=== PATIENT | female | born 1990 | race Caucasian/White ===

== ENCOUNTER 2020-02-13 09:51 | Outpatient (REF) | payer OTHER, SELFPAY | END 2020-02-13 09:52 | disposition home or self-care (01) | LOC: HO.LAB 09:51 | PROVIDERS: Visit Provider Internal Medicine | DX: Z20.828 Contact with and (suspected) exposure to other viral communicable diseases (principal) | CPT/HCPCS: 87635 ==

== ENCOUNTER 2020-03-19 09:52 | Outpatient (REF) | payer OTHER, SELFPAY | END 2020-03-19 09:53 | disposition home or self-care (01) | LOC: HO.LAB 09:52 | PROVIDERS: PCP Internal Medicine; Visit Provider Internal Medicine | DX: Z20.828 Contact with and (suspected) exposure to other viral communicable diseases (principal) | CPT/HCPCS: C9803; U0003 ==

== ENCOUNTER 2020-04-29 09:57 | Outpatient (REF) | payer OTHER, SELFPAY ==
[2020-04-29 11:02] LABS: MANUAL DIFF FLAG NO
[2020-04-29 11:12] LABS: Basophils Absolute Auto 0.1 X10*3/uL (0.0-0.2); Eosinophils Absolute Auto 0.5 X10*3/uL (0.0-0.4); Eosinophils Percent Auto 6.6 % (0-4); Hematocrit 40.2 % (37-47); Hemoglobin 13.1 g/dl (12.0-16.0); Imm Gran Abs Auto 0.02 X10*3/uL (0.00-0.03); Imm Gran Pct Auto 0.3 % (0.0-0.4); Lymphocytes Absolute Auto 2.1 X10*3/uL (1.2-4.9); Lymphocytes Percent Auto 28.4 % (20-40); Mean Corpuscular HGB Conc 32.6 g/dl (31.0-35.0); Mean Corpuscular Hemoglobin 28.7 pg (27.0-33.0); Mean Platelet Volume 11.9 fL (9.4-12.3); Monocytes Absolute Auto 0.3 X10*3/uL (0.1-1.2); Monocytes Percent Auto 3.6 % (2-11); Neutrophils Absolute Auto 4.4 X10*3/uL (2.0-8.3); Neutrophils Percent Auto 60.1 % (45-73); Platelet Count 281 X10*3/uL (160-400); Red Blood Count 4.57 X10*6/uL (4.20-5.50); Red Cell Distribution Width 12.2 % (11.0-16.0); White Blood Count 7.3 X10*3/uL (4.8-10.8)
[2020-04-29 11:47] LABS: Alanine Aminotransferase 17 U/L (0-31); Albumin Level 4.4 g/dL (3.5-5.0); Alkaline Phosphatase 50 U/L (39-117); Anion Gap 13 (12-20); Aspartate Amino Transferase 18 U/L (5-31); Blood Urea Nitrogen 11 mg/dL (9-16); Calcium 8.9 mg/dL (8.4-10.2); Carbon Dioxide 25 mmol/L (22-29); Chloride 105 mmol/L (96-108); Estimated Glomerular Filt Rate > 60; Glucose Random 89 mg/dL (60-115); Potassium 4.1 mmol/l (3.3-5.1); Sodium 139 mmol/L (135-145); Total Protein 7.5 g/dL (6.5-8.0)
[2020-04-29 11:56] LABS: Bilirubin Total 0.6 mg/dL (0.0-1.0)
[2020-04-30 16:52] LABS: Lutenizing Hormone 6.2 mIU/mL
== END 2020-04-29 09:58 | disposition home or self-care (01) ==
LOC: HO.LAB 09:57
PROVIDERS: PCP Internal Medicine; Visit Provider Internal Medicine
DX: E28.2 Polycystic ovarian syndrome (principal); L70.2 Acne varioliformis; N95.1 Menopausal and female climacteric states
CPT/HCPCS: 36415; 80053; 83001; 83002; 84443; 85025

== ENCOUNTER 2020-11-11 10:34 | Outpatient (REF) | payer OTHER, SELFPAY | END 2020-11-11 10:35 | disposition home or self-care (01) | LOC: HO.LAB 10:34 | PROVIDERS: PCP Internal Medicine; Visit Provider Internal Medicine | DX: Z20.822 Contact with and (suspected) exposure to COVID-19 (principal) | CPT/HCPCS: C9803; U0003; U0005 ==

== ENCOUNTER 2021-01-08 10:17 | Outpatient (REF) | payer OTHER, SELFPAY ==
[2021-01-08 12:08] LABS: Alanine Aminotransferase 14 U/L (0-31); Albumin Level 4.2 g/dL (3.5-5.0); Alkaline Phosphatase 40 U/L (39-117); Anion Gap 12 (12-20); Aspartate Amino Transferase 16 U/L (5-31); Bilirubin Total 0.6 mg/dL (0.0-1.0); Blood Urea Nitrogen 9 mg/dL (9-16); Carbon Dioxide 21 mmol/L (22-29); Chloride 109 mmol/L (96-108); Cholesterol 146 mg/dL; Estimated Glomerular Filt Rate > 60; Glucose Random 82 mg/dL (60-115); HDL Cholesterol 44 mg/dL; LDL Cholesterol Calculated 76 mg/dl; Potassium 4.2 mmol/L (3.3-5.1); Sodium 138 mmol/L (135-145); Triglycerides 130 mg/dL
[2021-01-13 12:16] LABS: Testosterone, Free 6.4 pg/mL (0.1-6.4); Testosterone, Total 65 ng/dL (2-45)
[2021-01-13 20:41] LABS: DHEA Sulfate 95 mcg/dL (23-266)
== END 2021-01-08 10:18 | disposition home or self-care (01) ==
LOC: HO.LAB 10:17
PROVIDERS: PCP Internal Medicine; Visit Provider Internal Medicine
DX: E28.2 Polycystic ovarian syndrome (principal); L02.439 Carbuncle of limb, unspecified; L68.0 Hirsutism
CPT/HCPCS: 36415; 80053; 80061; 82627; 84402; 84403

== ENCOUNTER 2021-02-05 13:32 | Outpatient (REF) | payer OTHER, SELFPAY ==
[2021-02-06 02:12] LABS: CT PCR NOT DETECTED (Not Detect.); NG PCR NOT DETECTED (Not Detect.)
[2021-02-08 13:41] LABS: HPV mRNA E6/E7 rflx Not Detected (Not Detected)
== END 2021-02-05 13:33 | disposition home or self-care (01) ==
LOC: HO.LAB 13:32
PROVIDERS: PCP Internal Medicine; Visit Provider Obstetrics & Gynecology
DX: Z01.419 Encounter for gynecological examination (general) (routine) without abnormal findings (principal); E28.2 Polycystic ovarian syndrome; L68.0 Hirsutism
CPT/HCPCS: 87491; 87591; 87624; 88142; 99202

== ENCOUNTER 2021-02-19 15:24 | Outpatient (REF) | payer OTHER, SELFPAY ==
--- NOTE | ~2021-02-19 | US_ITS ---
EXAMINATION: ULTRASOUND OF THE PELVIS CLINICAL INFORMATION: Polycystic ovarian syndrome.. COMPARISON: 04/11/2018. TECHNIQUE: Transabdominal and transvaginal pelvic ultrasound. A transvaginal study was performed in addition to the transabdominal study which did not yield an adequate examination of the uterus and ovaries due to superimposed distended gas-filled loops of bowel. FINDINGS: The uterus is normal in size and appearance, measuring 8.2 x 5 x 3.9 cm longitudinally, anteroposteriorly and transversely. The endometrial stripe thickness is normal, measuring 0.9 cm in thickness. No focal myometrial mass is seen. Nabothian cysts at the cervix. The ovaries bilaterally are visualized, with the right ovary measuring 3.9 x 3.4 x 3.1 cm and the left ovary measuring 4 x 2.8 x 3.2 cm. Multiple small peripheral follicles are seen bilaterally. Small volume of pelvic free fluid. US/US pelvic and transvaginal IMPRESSION: Multiple small peripheral follicles are seen involving both ovaries, as can be seen in the setting of polycystic ovarian syndrome.
== END 2021-02-19 15:25 | disposition home or self-care (01) ==
LOC: HO.US 15:24
PROVIDERS: PCP Internal Medicine; Visit Provider Obstetrics & Gynecology
DX: E28.2 Polycystic ovarian syndrome (principal)
CPT/HCPCS: 76830; 76856

== ENCOUNTER 2021-02-22 08:30 | Outpatient (REF) | payer OTHER, SELFPAY ==
[2021-02-23 09:02] LABS: Prolactin 13.7 ng/mL
== END 2021-02-22 08:31 | disposition home or self-care (01) ==
LOC: HO.LAB 08:30
PROVIDERS: PCP Internal Medicine; Visit Provider Obstetrics & Gynecology
DX: E28.2 Polycystic ovarian syndrome (principal)
CPT/HCPCS: 36415; 84146; 84443

== ENCOUNTER 2021-03-05 15:03 | Outpatient (REF) | payer OTHER, SELFPAY | END 2021-03-05 15:04 | disposition home or self-care (01) | LOC: HO.LAB 15:03 | PROVIDERS: PCP Internal Medicine; Visit Provider Obstetrics & Gynecology | DX: E28.2 Polycystic ovarian syndrome (principal) | CPT/HCPCS: 58100; 81025; 88305 ==

== ENCOUNTER → 2021-04-01 13:56 | Outpatient (BNVA) | payer OTHER, SELFPAY | PROVIDERS: PCP Internal Medicine; Visit Provider Obstetrics & Gynecology | DX: L68.0 Hirsutism (principal); E28.2 Polycystic ovarian syndrome | CPT/HCPCS: 99212 ==

== ENCOUNTER 2021-09-17 09:23 | Outpatient (REF) | payer OTHER, SELFPAY ==
[2021-09-17 09:48] LABS: MANUAL DIFF FLAG NO
[2021-09-17 11:08] LABS: Basophils Absolute Auto 0.1 X10*3/uL (0.0-0.2); Basophils Percent Auto 0.9 % (0-2); Eosinophils Absolute Auto 0.5 X10*3/uL (0.0-0.4); Eosinophils Percent Auto 6.4 % (0-4); Hematocrit 41.1 % (37.0-47.0); Hemoglobin 13.4 g/dl (12.0-16.0); Imm Gran Abs Auto 0.03 X10*3/uL (0.00-0.03); Imm Gran Pct Auto 0.4 % (0.0-0.4); Lymphocytes Absolute Auto 2.2 X10*3/uL (1.2-4.9); Lymphocytes Percent Auto 27.2 % (20-40); Mean Corpuscular HGB Conc 32.6 g/dl (31.0-35.0); Mean Corpuscular Hemoglobin 28.5 pg (27.0-33.0); Mean Corpuscular Volume 87.4 fL (80.0-98.0); Mean Platelet Volume 11.9 fL (9.4-12.3); Monocytes Absolute Auto 0.4 X10*3/uL (0.1-1.2); Monocytes Percent Auto 4.3 % (2-11); Neutrophils Absolute Auto 4.9 x10*3/uL (2.0-8.3); Neutrophils Percent Auto 60.8 % (45-73); Platelet Count 259 X10*3/uL (160-400); Red Cell Distribution Width 12.3 % (11.0-16.0); White Blood Count 8.1 X10*3/uL (4.8-10.8)
[2021-09-17 11:49] LABS: Alanine Aminotransferase 23 U/L (0-31); Albumin Level 4.3 g/dL (3.5-5.0); Alkaline Phosphatase 49 U/L (39-117); Anion Gap 14 (12-20); Aspartate Amino Transferase 21 U/L (5-31); Bilirubin Total 0.4 mg/dL (0.0-1.0); Blood Urea Nitrogen 13 mg/dL (9-16); Calcium 9.5 mg/dL (8.4-10.2); Carbon Dioxide 24 mmol/L (22-29); Chloride 106 mmol/L (96-108); Estimated Glomerular Filt Rate > 60; Glucose Random 86 mg/dL (60-115); Potassium 4.6 mmol/L (3.3-5.1); Sodium 139 mmol/L (135-145); Total Protein 7.6 g/dL (6.5-8.0)
[2021-09-17 11:55] LABS: Thyroid Stimulating Hormone 2.74 uIU/mL (0.32-4.0)
== END 2021-09-17 09:24 | disposition home or self-care (01) ==
LOC: HO.LAB 09:23
PROVIDERS: PCP Internal Medicine; Visit Provider Internal Medicine
DX: K59.00 Constipation, unspecified (principal); R10.33 Periumbilical pain; R10.9 Unspecified abdominal pain
CPT/HCPCS: 36415; 80053; 84443; 85025

== ENCOUNTER 2022-02-24 14:03 | Outpatient (REF) | payer OTHER, SELFPAY ==
[2022-02-25 15:20] LABS: CT PCR NOT DETECTED (Not Detect.); NG PCR NOT DETECTED (Not Detect.)
== END 2022-02-24 14:04 | disposition home or self-care (01) ==
LOC: HO.LNP 14:03
PROVIDERS: PCP Internal Medicine; Visit Provider Obstetrics & Gynecology
DX: Z32.02 Encounter for pregnancy test, result negative (principal)
CPT/HCPCS: 81025; 87491; 87591; 99212

== ENCOUNTER 2022-11-11 20:44 | Emergency (ER) | payer OTHER, SELFPAY ==
[2022-11-11 20:47] VITALS: BP 154/99; PULSE 97; RESP 16; TEMP 36.9; O2SAT 100; BMI 35.2
[2022-11-11 21:45] LABS: MANUAL DIFF FLAG NO
[2022-11-11 21:53] LABS: Basophils Absolute Auto 0.1 X10*3/uL (0.0-0.2); Basophils Percent Auto 0.9 % (0-2); Eosinophils Absolute Auto 0.6 X10*3/uL (0.0-0.4); Eosinophils Percent Auto 5.4 % (0-4); Hemoglobin 13.4 g/dl (12.0-16.0); Imm Gran Abs Auto 0.02 X10*3/uL (0.00-0.03); Imm Gran Pct Auto 0.2 % (0.0-0.4); Lymphocytes Absolute Auto 2.6 X10*3/uL (1.2-4.9); Lymphocytes Percent Auto 24.7 % (20-40); Mean Corpuscular HGB Conc 33.5 g/dl (31.0-35.0); Mean Corpuscular Hemoglobin 29.2 pg (27.0-33.0); Mean Corpuscular Volume 87.1 fL (80.0-98.0); Mean Platelet Volume 11.5 fL (9.4-12.3); Monocytes Absolute Auto 0.5 X10*3/uL (0.1-1.2); Monocytes Percent Auto 4.9 % (2-11); Neutrophils Absolute Auto 6.6 x10*3/uL (2.0-8.3); Neutrophils Percent Auto 63.9 % (45-73); Platelet Count 303 X10*3/uL (160-400); Red Blood Count 4.59 X10*6/uL (4.20-5.50); Red Cell Distribution Width 12.4 % (11.0-16.0); White Blood Count 10.3 X10*3/uL (4.8-10.8)
--- NOTE | 2022-11-11 21:53 | MHC.EDTECH ---
This tech brought patient to triage area,labs and Type and Screen obtained and sent to lab
[2022-11-11 22:03] LABS: Alanine Aminotransferase 59 U/L (0-31); Albumin Level 4.3 g/dL (3.5-5.0); Alkaline Phosphatase 52 U/L (39-117); Anion Gap 14 (12-20); Aspartate Amino Transferase 33 U/L (5-31); Bilirubin Total 0.4 mg/dL (0.0-1.0); Blood Urea Nitrogen 13 mg/dL (9-16); Calcium 9.6 mg/dL (8.4-10.2); Carbon Dioxide 24 mmol/L (22-29); Chloride 106 mmol/L (96-108); Creatinine Clr Calc Pharmacy 90.1; Estimated Glomerular Filt Rate > 60; Glucose Random 104 mg/dL (60-115); Potassium 3.6 mmol/L (3.3-5.1); Sodium 140 mmol/L (135-145); Total Protein 7.7 g/dL (6.5-8.0)
--- NOTE | 2022-11-11 22:12 | MHC.EDTECH ---
Patient was brought to triage area to draw a second type, attempted to get a urine sample,patient was unable to go at this time. Will re-attempt
[2022-11-11 22:25] LABS: HCG Quantitative < 2 mIU/mL
[2022-11-11 23:47] VITALS: BP 132/79; PULSE 80; RESP 18; TEMP 36.6; O2SAT 100
--- NOTE | 2022-11-11 23:52 | PC.NURSE ---
Assumed care of patient. VSS, patient reports vaginal bleeding started on Wednesday11/07/22, today started bleeding heavier with clots approximately the size of a d3grtew dollar. urine sent to lab.
[2022-11-12 00:12] LABS: Appearance Urine Hazy; Color Urine Yellow; Glucose Urine UA Negative (Negative); Leukocyte Esterase Urine Negative (Negative); Nitrite Urine Negative (Negative); PH 5.5 (5.0-9.0); Specific Gravity - Urine >= 1.030 (1.005-1.025); UMIC TRIGGER UACC YES; Urine Blood Large (3+) (Negative); Urine Ketones Negative (Negative); Urine Protein Trace mg/dL (Neg-Trace)
[2022-11-12 00:15] VITALS: BP 132/79; PULSE 80; RESP 16; TEMP 36.6; O2SAT 100
--- NOTE | 2022-11-12 00:25 | ED.GENADULT ---
HPI - General Adult General Chief complaint: Vaginal Bleeding Stated complaint: miscarriages? unknown length of time Time Seen by Provider: 11/12/22 00:06 Source: patient and old records reviewed Mode of arrival: ambulatory Limitations: no limitations History of Present Illness HPI narrative: 32-year-old female presents for evaluation of vaginal bleeding. Patient reports that her menstrual cycle started 2 days ago. She states that was initially seem normal. However today she has had a heavy flow which is abnormal for her with very large blood clots She is concerned that she is having a miscarriage She does not have a documented Her last menstrual cycle was approximately 3 months ago She has a history of PCOS and has her menstrual cycle home in approximately once every 3 months She reports mild lower abdominal cramping Related Data Home Medications Medication Instructions Recorded Confirmed norethindrone (contraceptive) 0.35 0.35 mg PO DAILY 02/24/22 mg tablet Previous Rx's Medication Instructions Recorded docusate sodium 100 mg capsule 100 mg PO DAILY #30 caps 05/08/22 (Colace) Allergies Allergy/AdvReac Type Severity Reaction Status Date / Time acetaminophen [From PERCOCET] Allergy Intermediate RASH Verified 03/05/21 15:15 morphine [MORPHINE] Allergy Intermediate RASH Verified 03/05/21 15:15 oxycodone [From PERCOCET] Allergy Intermediate RASH Verified 03/05/21 15:15 Review of Systems Gastrointestinal: Gastrointestinal: Reports abdominal pain, Denies diarrhea, Denies nausea and Denies vomiting Genitourinary: Genitourinary: Reports abnormal vaginal bleeding and Reports dysmenorrhea PMFSH Family History Family History Maternal Grandmother Breast CA Paternal Grandmother Breast CA Social History Social History Patient Tobacco Use Status: Never used Tobacco Advance Directives: No Advance Directives Information Provided: Yes Physical Exam ED Vital Signs: Vital Signs - 24 hr 11/11/22 20:47 11/11/22 23:47 11/12/22 00:15 Temperature 98.4 F 97.8 F 97.8 F Pulse Rate 97 80 80 Respiratory Rate 16 18 16 Blood Pressure 154/99 H 132/79 132/79 Pulse Oximetry 100 100 100 Oxygen Delivery Method Room Air Room Air Room Air BMI result Body Mass Index 35.2 Const General: healthy appearing, comfortable, no acute distress, alert and awake Nutritional Appearance: well nourished Orientation/consciousness: patient oriented x3 HENMT Head: Yes normocephalic and Yes atraumatic Eyes Eyelids: Yes eyelids normal Conjunctivae: conjunctivae normal Sclerae: sclerae normal Corneas: corneas normal Pupils: Equal, round and reactive pupils present EOM: EOMs intact bilaterally Neck Neck: Yes full ROM Resp Effort & Inspection: normal respiratory effort, able to speak in complete sentences and not labored GI Inspection: No distended Palpation (GI): Soft to palpation, not firm, Tenderness to palpation present (GI) suprapubicly, no guarding and not rigid Skin General skin exam: no rashes or lesions noted and elasticity normal Neuro General: patient oriented x3 Cranial nerves: Yes Equal, round and reactive pupils present and Yes Bilaterally intact EOM present Cognition (Neuro): normal cognition Extrem Other: Moving all extremities well without any obvious deformities Medical Decision Making Medical Decision Making MDM Narrative: [age] old female with past medical history significant for PCOS presents for evaluation of vaginal bleeding. She is not anemic. Her hCG is less than 2 and a serum level indicating that she is not and therefore not having a miscarriage. I discussed this with the patient, her UA does not show evidence of infection, she is to discharge this time and will follow-up with her OBGYN. She reports that she was on control up until about 9 months ago when she stopped due to waking Differential Diagnosis Dysmenorrhea Miscarriage Menstrual cycle Vaginal bleeding Lab Data [facility] Lab Attestation statement: I reviewed the patient's lab results. No leukocytosis, normal hemoglobin and hematocrit. Electrolytes within normal limits. Serum hCG less than 2 11/11/22 21:38 11/11/22 21:38 Labs: Lab Results 11/11/22 11/11/22 11/11/22 Range/Units 21:38 21:38 21:38 WBC 10.3 (4.8-10.8) X10*3/uL RBC 4.59 (4.20-5.50) X10*6/uL Hgb 13.4 (12.0-16.0) g/dl Hct 40.0 (37.0-47.0) % MCV 87.1 (80.0-98.0) fL MCH 29.2 (27.0-33.0) pg MCHC 33.5 (31.0-35.0) g/dl RDW 12.4 (11.0-16.0) % Plt Count 303 (160-400) X10*3/uL MPV 11.5 (9.4-12.3) fL Immature Gran % (Auto) 0.2 (0.0-0.4) % Neut % (Auto) 63.9 (45-73) % Lymph % (Auto) 24.7 (20-40) % [place] % (Auto) 4.9 (2-11) % Eos % (Auto) 5.4 H (0-4) % Baso % (Auto) 0.9 (0-2) % Lymph # (Auto) 2.6 (1.2-4.9) X10*3/uL [place] # (Auto) 0.5 (0.1-1.2) X10*3/uL Eos # (Auto) 0.6 H (0.0-0.4) X10*3/uL Baso # (Auto) 0.1 (0.0-0.2) X10*3/uL Abs Immat Gran (auto) 0.02 (0.00-0.03) X10*3/uL Absolute Neuts (auto) 6.6 (2.0-8.3) x10*3/uL Absolute Nucleated RBC 0.000 (0.0-0.012) X10*3/uL Nucleated RBC % (auto) 0.0 (0.0-0.2) /100WBC Sodium 140 (135-145) mmol/L Potassium 3.6 D (3.3-5.1) mmol/L Chloride 106 (96-108) mmol/L Carbon Dioxide 24 (22-29) mmol/L Anion Gap 14 (12-20) BUN 13 (9-16) mg/dL Creatinine 0.84 (0.5-1.4) mg/dL Estim Creat Clear Calc 90.1 Estimated GFR > 60 Random Glucose 104 (60-115) mg/dL Calcium 9.6 (8.4-10.2) mg/dL Total Bilirubin 0.4 (0.0-1.0) mg/dL AST 33 H (5-31) U/L ALT 59 H (0-31) U/L Alkaline Phosphatase 52 (39-117) U/L Total Protein 7.7 (6.5-8.0) g/dL Albumin 4.3 (3.5-5.0) g/dL Beta HCG, Quant < 2 mIU/mL Urine Color Urine Appearance Urine pH (5.0-9.0) Ur Specific [place] (1.005-1.025) Urine Protein (Neg-Trace) mg/dL Urine Glucose (UA) (Negative) mg/dL Urine Ketones (Negative) mg/dL Urine Blood (Negative) Urine Nitrite (Negative) Ur Leukocyte Esterase (Negative) Blood Type Antibody Screen 11/11/22 11/11/22 Range/Units 21:38 23:54 WBC (4.8-10.8) X10*3/uL RBC (4.20-5.50) X10*6/uL Hgb (12.0-16.0) g/dl Hct (37.0-47.0) % MCV (80.0-98.0) fL MCH (27.0-33.0) pg MCHC (31.0-35.0) g/dl RDW (11.0-16.0) % Plt Count (160-400) X10*3/uL MPV (9.4-12.3) fL Immature Gran % (Auto) (0.0-0.4) % Neut % (Auto) (45-73) % Lymph % (Auto) (20-40) % [place] % (Auto) (2-11) % Eos % (Auto) (0-4) % Baso % (Auto) (0-2) % Lymph # (Auto) (1.2-4.9) X10*3/uL [place] # (Auto) (0.1-1.2) X10*3/uL Eos # (Auto) (0.0-0.4) X10*3/uL Baso # (Auto) (0.0-0.2) X10*3/uL Abs Immat Gran (auto) (0.00-0.03) X10*3/uL Absolute Neuts (auto) (2.0-8.3) x10*3/uL Absolute Nucleated RBC (0.0-0.012) X10*3/uL Nucleated RBC % (auto) (0.0-0.2) /100WBC Sodium (135-145) mmol/L Potassium (3.3-5.1) mmol/L Chloride (96-108) mmol/L Carbon Dioxide (22-29) mmol/L Anion Gap (12-20) BUN (9-16) mg/dL Creatinine (0.5-1.4) mg/dL Estim Creat Clear Calc Estimated GFR Random Glucose (60-115) mg/dL Calcium (8.4-10.2) mg/dL Total Bilirubin (0.0-1.0) mg/dL AST (5-31) U/L ALT (0-31) U/L Alkaline Phosphatase (39-117) U/L Total Protein (6.5-8.0) g/dL Albumin (3.5-5.0) g/dL Beta HCG, Quant mIU/mL Urine Color Yellow Urine Appearance Hazy Urine pH 5.5 (5.0-9.0) Ur Specific [place] >= 1.030 H (1.005-1.025) Urine Protein Trace (Neg-Trace) mg/dL Urine Glucose (UA) Negative (Negative) mg/dL Urine Ketones Negative (Negative) mg/dL Urine Blood Large (3+) H (Negative) Urine Nitrite Negative (Negative) Ur Leukocyte Esterase Negative (Negative) Blood Type A Positive Antibody Screen NEGATIVE Discharge Plan Discharge Clinical Impression: Dysmenorrhea Patient Disposition: Home, Self-Care Instructions: Dysmenorrhea (ED) Additional Instructions: Your hormone was undetectable indicating that you are not Your blood counts are within normal limits in your UA did not show any signs of infection Follow-up with your OBGYN Return for new or worsening symptoms Prescriptions: No Action docusate sodium [Colace] 100 mg capsule 100 mg PO DAILY Qty: 30 2RF norethindrone (contraceptive) 0.35 mg tablet 0.35 mg PO DAILY
[2022-11-12 00:38] LABS: Bacteria Urine 1+ (None Seen); Hyaline Casts Urine 0-2 /LPF (0-2); RBC Urine >20 /HPF (0-2); WBC Urine 0-5 /HPF (0-5)
== END 2022-11-12 01:11 | disposition home or self-care (01) ==
PROVIDERS: Internal Medicine; Emergency Provider Emergency Medicine; PCP Internal Medicine
DX: N94.6 Dysmenorrhea, unspecified (principal)
CPT/HCPCS: 36415; 80053; 81001; 84702; 85025; 86850; 86900; 86901; 99283; 99284

== ENCOUNTER 2023-03-01 14:18 | Outpatient (REF) | payer OTHER, SELFPAY ==
[2023-03-02 06:05] LABS: CT PCR NOT DETECTED (Not Detect.); NG PCR NOT DETECTED (Not Detect.)
== END 2023-03-01 14:19 | disposition home or self-care (01) ==
LOC: HO.LNP 14:18
PROVIDERS: Visit Provider Obstetrics & Gynecology
DX: Z01.419 Encounter for gynecological examination (general) (routine) without abnormal findings (principal)
CPT/HCPCS: 0353U; 99395

== ENCOUNTER 2023-03-01 14:18 | Outpatient (AMB) | payer OTHER, SELFPAY ==
--- NOTE | 2023-03-01 14:23 | A.OFFVIS_ITS ---
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 No complaints. The patient would like to discuss different options of control Last Pap/HPV was negative in 02/13 [facility] Family History Maternal Grandmother Breast CA Paternal Grandmother Breast CA Social History Alcohol intake: never Patient Tobacco Use Status: Never used Tobacco Sexual orientation: Straight/Heterosexual Gender identity: Female Female Reproductive History Menstrual Age of Menarche: 11 Date of last menstrual period: 02/07/23 control method: none Total pregnancies: 0 Date of last pap smear: 02/05/21 (neg pap and hpv) Review of Systems Const All systems reviewed & are unremarkable except as noted in HPI and below Card Reports as per HPI Resp Reports as per HPI GI Reports as per HPI and Reports no additional complaints Reports as per HPI Physical Exam Const General: cooperative, healthy appearing and comfortable Chest Chest palpation & inspection: normal inspection of the chest and normal palpation of entire chest wall Breast/axilla inspection: normal inspection of the breasts and normal inspection of the axillae Breast/axilla palpation: normal palpation of the breasts, normal palpation of the axillae and no axillary lymphadenopathy Resp Effort & Inspection: normal respiratory effort Auscultation: clear to auscultation bilaterally Percussion: percussion normal Cardio Palpation: normal PMI Rate: regular rate Rhythm: regular rhythm Heart sounds: no murmurs and no rubs Peripheral pulses: Peripheral pulses 2+ throughout GI Inspection: Yes normal to inspection Palpation (GI): Soft to palpation, nontender, no guarding, not rigid and No hepatosplenomegaly present Percussion: Yes normal to percussion Auscultation: normal bowel sounds Rectal Exam - Female: deferred General: Yes bladder normal to palpation External Female Exam: No lesion Speculum Exam - Vagina: normal appearance of the vagina, normal palpation, normal vaginal discharge and not erythematous Speculum Exam - Cervix: normal appearance of the cervix and normal palpation Bimanual exam- vagina & uterus: normal bimanual exam, normal palpation, uterine size normal, bladder normal to palpation, consistency normal and normal palpation Bimanual Exam- Adnexa, other: normal adnexae, no masses and no tenderness Assessment & Plan Assessment & Plan (1) Well woman exam: Code(s): Z01.419 - Encounter for gynecological examination (general) (routine) without abnormal findings Plan: Cotesting not indicated this year. Counseled the patient about the recommended dietary allowance of 1000 mg of Calcium & 600 IU of vitamin D. The patient was instructed to perform monthly self-breast exams and to schedule an annual exam in a year; All questions answered and the patient verbalized understanding. Instructed the patient to schedule annual exam in a year (2) Family planning: Code(s): Z30.09 - Encounter for other general counseling and advice on contraception Plan: Discussed with the patient the different options of control including control pills/Nuvaring, DMPA, different types of IUD ?s ( cu vs progesterone) , sterilization. All the pros, cons, risks and benefits of each were discussed with the patient. The patient decided to go ahead with Mirena IUD, so a more detailed discussion was carried on including mechanism of action, risks (infection, uterine perforation, failure with ectopic , septic AB, ovarian cyst and pelvic pain, increased breast cancer risk and others) benefits (efficient contraceptive method, others), GC/CG were taken and the patient was asked to call day one of next cycle for IUD insertion. Coding Level of Care Code Est Pt Prev Care 18-39y(79701) Diagnoses Well woman exam Z01.419 Family planning Z30.09
[2023-03-01 14:24] VITALS: BP 110/76; BMI 34.4
== END 2023-03-01 14:42 | disposition home or self-care (01) ==
PROVIDERS: Visit Provider Obstetrics & Gynecology
DX: Z01.419 Encounter for gynecological examination (general) (routine) without abnormal findings (principal); Z30.09 Encounter for other general counseling and advice on contraception
CPT/HCPCS: 99395

== ENCOUNTER 2023-07-06 12:46 | Outpatient (AMB) | payer OTHER, SELFPAY ==
--- NOTE | 2023-07-06 12:59 | A.OFFVIS_ITS ---
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 Allergies acetaminophen [From PERCOCET] Allergy (Intermediate, Verified 07/06/23 12:59) RASH morphine [MORPHINE] Allergy (Intermediate, Verified 07/06/23 12:59) RASH oxycodone [From PERCOCET] Allergy (Intermediate, Verified 07/06/23 12:59) RASH Is last menstrual period known: Yes Last menstrual period: 07/04/23 HPI HPI Comments History of Present Illness Details Presenting for Mirena IUD insertion PFSH Family History Maternal Grandmother Breast CA Paternal Grandmother Breast CA Social History Alcohol intake: never Patient Tobacco Use Status: Never used Tobacco Sexual orientation: Straight/Heterosexual Gender identity: Female Female Reproductive History Menstrual Age of Menarche: 11 Date of last menstrual period: 07/04/23 Office Procedures IUD Insert/Removal Details Details: The patient is presenting for Mirena IUD insertion Urine test was done in the office and was negative; All the contraindications were excluded. The following possible complications were discussed with the patient: Intrauterine , Ectopic , Sepsis, Pelvic Infection, Irregular Bleeding and Amenorrhea, Perforation, Expulsion, Ovarian Cysts, Breast Cancer, The following adverse effects were discussed with the patient: alteration of menstrual bleeding pattern, including: unscheduled uterine bleeding decreased uterine bleeding increased scheduled uterine bleeding female genital tract bleeding ,amenorrhea , genital discharge , vulvovaginitis , breast pain , benign ovarian cyst and associated complications , dysmenorrhea , Gastrointestinal disorders abdominal/pelvic pain, headache/migraine , back pain , acne , depression Alternative options were discussed with the patient including but not limited: control pills, patch, NuvaRing, Depo-medroxyprogesterone acetate, Nexplanon, copper IUD, sterilization, vasectomy, others The procedure was explained in detail to patient , at the end patient signed the informed consent obtained. A no touch technique was used throughout the procedure. A speculum was placed into vagina and cervix was cleaned with betadine). A tenaculum was placed. A plastic sound was advanced through the external and internal os until it reached the fundus of the uterus, the depth was 8 cm. The sound was then withdrawn. The IUD was loaded in a sterile manner and advanced into position. The string was visualized and cut to 3 cm. Tenaculum site hemostatic. All instruments removed from vagina. Patient tolerated the procedure well. NO complications were noted. Patient was instructed to call for fever over 100.4, significant pain unrelieved by Motrin, IUD expulsion, heavy bleeding, or abnormal discharge. In addition, the following clinical considerations were discussed with the patient to call for removal: A stroke or heart attack ,Very severe or migraine headaches ,Unexplained fever ,Yellowing of the skin or whites of the eyes, as these may be signs of serious liver problems , or suspected , Pelvic pain or pain during sex ,HIV positive seroconversion in herself or her partner , Possible exposure to sexually transmitted infections Unusual vaginal discharge or genital sores , severe vaginal bleeding or bleeding that lasts a long time, or if she misses a menstrual period, Inability to feel Mirena's threads Counseled the patient that the IUD does not protect against STI's, recommended use of condoms for the first 7 days post insertion and explained to the patient that condoms are recommended for patients at risk for sexually transmitted infections. In for the patient that Mirena IUD is FDA approved for 8 years for contraception for 5 years for the treatment of heavy menses Instructed the patient to schedule a Follow up appointment in 4 to 6 weeks f ollowing insertion. This note was generated with a voice recognition program. Some errors may have been overlooked during the review of this note. Sometimes these errors may affect the content or meaning of a given sentence. Procedure code (CPT) selection complete Office Meds Mirena 21 mcg/24 hours (8 yrs) 52 mg intrauterine device Performing Provider: Flo Plummer MD Performing Location: [facility] Documented (not given) by: Flo Plummer MD on 07/06/23 13:10 Dose Route Admin Location Dispensed Lot Number Expiration Date FORMERLY NAMED [facility] [employer] Work[employer] 1 device intrauterine ea Results AMB Test Urine AMB Test Urine Negative Last Edit by CEASAR Tomas on 07/06/23 13:04 Assessment & Plan Assessment & Plan (1) Encounter for IUD insertion: Code(s): Z30.430 - Encounter for insertion of intrauterine contraceptive device Plan: Mirena IUD inserted, see procedure note Orders: Orders AMB HCG Urine Test Today Z32.02 - Encounter for test, result negative AMB IUD Insertion/Removal - Practice Supplied Today Z30.430 - Encounter for insertion of intrauterine contraceptive device Medications: New Mirena (levonorgestrel) 1 device intrauterine ONCE 1 ea 0RF IUD insertion NS Z30.430 - Encounter for insertion of intrauterine contraceptive device Coding Level of Care Code Procedure Only Diagnoses Encounter for IUD insertion Z30.430
[2023-07-06 13:00] VITALS: BP 110/70; BMI 34.4
== END 2023-07-06 13:13 | disposition home or self-care (01) ==
PROVIDERS: PCP Internal Medicine; Visit Provider Obstetrics & Gynecology
DX: Z30.430 Encounter for insertion of intrauterine contraceptive device (principal); Z32.02 Encounter for pregnancy test, result negative
CPT/HCPCS: 58300

== ENCOUNTER → 2023-07-06 12:46 | Outpatient (BNVA) | payer OTHER, SELFPAY | PROVIDERS: PCP Internal Medicine; Visit Provider Obstetrics & Gynecology | DX: Z30.430 Encounter for insertion of intrauterine contraceptive device (principal) | CPT/HCPCS: 58300; 81025; J7298 ==

== ENCOUNTER 2023-08-17 09:45 | Outpatient (AMB) | payer OTHER, SELFPAY ==
--- NOTE | 2023-08-17 10:16 | A.OFFVIS_ITS ---
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 Feeder Required: No Information Interpreted: non-clinical & clinical Primary Special Educator: Primary Special Educator Present (Miriam) Allergies acetaminophen [From PERCOCET] Allergy (Intermediate, Verified 08/17/23 10:24) RASH morphine [MORPHINE] Allergy (Intermediate, Verified 08/17/23 10:24) RASH oxycodone [From PERCOCET] Allergy (Intermediate, Verified 08/17/23 10:24) RASH Post menopausal: No Patient : No HPI Comments Details: Presenting for IUD check complaining of continuous pelvic cramping and spotting would like to IUD taken out and discuss different options of control PFSH Family History Maternal Grandmother Breast CA Paternal Grandmother Breast CA Social History Alcohol intake: never Patient Tobacco Use Status: Never used Tobacco Patient : No Sexual orientation: Straight/Heterosexual Gender identity: Female Female Reproductive History Menstrual Age of Menarche: 11 control method: progestin IUCD Review of Systems Const All systems reviewed & are unremarkable except as noted in HPI and below Physical Exam Vital Signs: Last Vital Signs BP 116/70 08/17/23 10:23 BMI result Body Mass Index 34.4 General: Yes no CVA tenderness External Female Exam: normal external appearance and normal appearance of the urethra Speculum Exam - Vagina: normal appearance of the vagina, normal palpation, no lesions and no masses Speculum Exam - Cervix: normal appearance of the cervix, normal palpation, no lesions, no masses, nontender and Other cervical findings present (IUD string in place) Bimanual exam- vagina & uterus: normal bimanual exam, normal palpation, uterine size normal, normal palpation, uterine shape normal, No Cervical tenderness present and non-tender Bimanual Exam- Adnexa, other: normal adnexae Back/Spine/Pelvis Back: no CVA tenderness Office Procedures IUD Insert/Removal Details Details: Counseling/Consent: After discussing with the patient the risks of the procedure including bleeding, infection, scar tissue formation, , possible injury to blood vessels or nerves, chronic arm pain, blood transfusion, and irregular unpredictable bleeding Alternative options were discussed with the patient including but not limited: Do nothing. The patient signed the consent and agreed with the plan; all questions answered. Urine test was done in the office and was negative Preop dx: Requesting IUD removal Op: IUD removal Post op dx: same EBL= 10 cc Procedure: The patient was put in the dorsal lithotomy position a speculum was inserted in the vagina the IUD thread identified. Using a Phoebe clamp the thread was grasped and the IUD pulled out with no complications. The patient tolerated the procedure well and was advised to use a different method for contraception. Discharge instructions: Instructions were given to the pt to call if temp>100.4, abdominal pain heavy vaginal bleeding, n/v occur. The patient verbalized understanding and all questions answered. This note was generated with a voice recognition program. Some errors may have been overlooked during the review of this note. Sometimes these errors may affect the content or meaning of a given sentence. [id number] Removal Procedure code (CPT) selection complete Results AMB Test Urine AMB Test Urine Negative Last Edit by CEASAR Garcia on 08/17/23 10:26 Results Reviewed Results Reviewed: Laboratory Last Values [facility] Negative 08/17/23 10:26 Assessment & Plan Assessment & Plan (1) Encounter for IUD removal: Code(s): Z30.432 - Encounter for removal of intrauterine contraceptive device Category: Medical Plan: IUD removed, see procedure note (2) Family planning: Code(s): Z30.09 - Encounter for other general counseling and advice on contraception Category: Social Hx Plan: Discussed with the patient the different options of control including control pills/Nuvaring, Depo Medroxy Progesterone Acetate, IUD ( levonorgestrel, Copper), sterilization. All the pros, cons, risks and benefits of each were discussed with the patient. The patient decided to go ahead with [facility] so a more detailed discussion re: control pills including mechanism of action, benefits (regular menses, less dysmenorrhea, less risk of ovarian cancer, ...), risks ( DVT, PE, Strokes, [place], increased breast ca, others). Instructions were given to use a back- up method for contraception x 1st 2 weeks, and to schedule a 3 months appointment for blood pressure check Orders: Orders AMB HCG Urine Test Today Z32.02 - Encounter for test, result negative Medications: New L norgest/e.estradiol-e.estrad 0.15 mg-30 mcg (84)/10 mcg (7) 1 tab PO DAILY 84 days 84 ea 0RF
[2023-08-17 10:23] VITALS: BP 116/70; BMI 34.4
== END 2023-08-17 10:48 | disposition home or self-care (01) ==
LOC: HO.HWS 09:45
PROVIDERS: PCP Internal Medicine; Visit Provider Obstetrics & Gynecology
DX: Z30.09 Encounter for other general counseling and advice on contraception (principal); Z30.432 Encounter for removal of intrauterine contraceptive device; Z32.02 Encounter for pregnancy test, result negative
CPT/HCPCS: 58301; 99213

== ENCOUNTER → 2023-08-17 09:45 | Outpatient (BNVA) | payer OTHER, SELFPAY | PROVIDERS: PCP Internal Medicine; Visit Provider Obstetrics & Gynecology | DX: Z30.432 Encounter for removal of intrauterine contraceptive device (principal); Z32.02 Encounter for pregnancy test, result negative; Z30.09 Encounter for other general counseling and advice on contraception | CPT/HCPCS: 58301; 81025; 99212 ==

== ENCOUNTER 2023-08-31 15:29 | Outpatient (AMB) | payer OTHER, SELFPAY ==
[2023-08-31 15:32] VITALS: BP 124/69; PULSE 88; BMI 34.0
--- NOTE | 2023-08-31 15:32 | A.OFFVIS_ITS ---
Vital Signs 08/31/23 15:32 Height 5 ft Weight 174 lb 2.643 oz BMI 34.0 BP 124/69 Blood Pressure Location Lt brachial Position Sitting Pulse 88 Intake Visit Reasons: chronic idiopathic constipation Intake Note: Chacorta presents in the office as a new patient for [facility]. CC: She states that she is here today for constipation. She will go 1-2 times in a week and she needs to drink/eat dairy products in order to have a bowel movement. It is solid - she states she is lactose intolerant so if she is backed up she will have a milkshake or something. She states when she has a BM there are hemorrhoids from pushing a lot. When she is menstruating she will have BMs but other than that it is difficult for her to go regular. Cadd Instructor Required: No Allergies acetaminophen [From PERCOCET] Allergy (Intermediate, Verified 08/31/23 15:35) RASH morphine [MORPHINE] Allergy (Intermediate, Verified 08/31/23 15:35) RASH oxycodone [From PERCOCET] Allergy (Intermediate, Verified 08/31/23 15:35) RASH HPI HPI chronic idiopathic constipation: Details: 33-year-old female with past medical history of PCOS, hirsutism is here today for initial consultation. Patient reports that for the past several months she has been dealing with constipated. If unable to go to the bathroom but only once or twice a week. Patient reports that she is lactose intolerance and when she feels like she is backed up she is going to drink milk shake or milk in her coffee so she can actually have a bowel movement. Patient 5 stool softener in the past. Patient denies melena, hematochezia. Patient does admit to have hemorrhoids, feels when she has to push in order to have a bowel movement. Patient admits that she does not drink much of water throughout the day. Patient reports that she feels very bloated crampy if no bowel movement for few days. Patient denies any nausea or vomiting. Denies any acid reflux, dyspepsia, dysphagia or odynophagia. [facility] Family History Maternal Grandmother Breast CA Paternal Grandmother Breast CA Social History Alcohol intake: never Patient Tobacco Use Status: Never used Tobacco Sexual orientation: Straight/Heterosexual Gender identity: Female Female Reproductive History Menstrual Age of Menarche: 11 Review of Systems Const Denies weight gain and Denies weight loss ENT Reports no additional complaints, Denies dysphagia and Denies odynophagia Card Reports no additional complaints Resp Reports no additional complaints GI Reports abdominal pain, Denies belching, Denies melena, Reports bloating, Reports constipation, Denies dysphagia, Denies excessive flatus, Denies dyspepsia, Denies heartburn, Denies diarrhea, Denies loose stools, Denies nausea, Denies odynophagia and Denies vomiting Reports no additional complaints Musc Reports no additional complaints Neuro Reports no additional complaints Psych Reports no additional complaints Endo Reports no additional complaints Physical Exam Vital Signs: Last Vital Signs Pulse 88 08/31/23 15:32 BP 124/69 08/31/23 15:32 BMI result Body Mass Index 34.0 Const General: healthy appearing, no acute distress and well developed Nutritional Appearance: well nourished Orientation/consciousness: patient oriented x3 Resp Effort & Inspection: normal respiratory effort, able to speak in complete sentences, no tracheal deviation and symmetric chest movement Auscultation: clear to auscultation bilaterally Cardio Rate: regular rate GI Inspection: Yes normal to inspection and No distended Palpation (GI): Soft to palpation, not firm, nontender and No hepatosplenomegaly present Auscultation: normal bowel sounds General: Yes no CVA tenderness Back/Spine/Pelvis Back: no CVA tenderness Skin General skin exam: elasticity normal, turgor normal and dry skin Neuro General: patient oriented x3 Psych Appearance: grossly normal Mental Status: mental status grossly normal Assessment & Plan Assessment & Plan (1) Constipation: Code(s): K59.00 - Constipation, unspecified Category: Medical Qualifiers: Constipation type: chronic idiopathic constipation Qualified Code(s): K59.04 - Chronic idiopathic constipation (2) Abdominal bloating: Code(s): R14.0 - Abdominal distension (gaseous) (3) Abdominal pain: Code(s): R10.9 - Unspecified abdominal pain Qualifiers: Abdominal location: generalized Qualified Code(s): R10.84 - Generalized abdominal pain Plan Patient will start taking Dulcolax 2 tablets daily. Increase fluid intake and activity to promote better bowel motility. Will check her thyroid. Liver panel and ultrasound. Patient does admit to have pain in the right upper quadrant that radiates to her upper abdomen. Patient will follow-up in the office in 2 months. She will call our office if she will have worsening symptoms or develop any other GI concerning symptoms. She is agreeable to current plan of care and verbalizes understanding of instructions. She was given the opportunity to ask questions and all questions answered. Thank you for allowing me to participate in her care Orders: Orders Liver Panel 09/01/23 R74.01 - Elevation of levels of liver transaminase levels TSH reflex Free T4 09/01/23 K59.00 - Constipation, unspecified US abdomen complete 08/31/23 R10.9 - Unspecified abdominal pain Medications: New bisacodyl (Dulcolax (bisacodyl)) 10 mg (2 x 5 mg) PO BEDTIME 180 tabs 4RF hydrocortisone 2.5% (Proctosol HC) 1 appl [place] BID-QID PRN 30 grams 2RF hemorrhoids K64.9 - Unspecified hemorrhoids Coding Level of Care Code New Pt Level 3 (94301) Diagnoses Chronic idiopathic constipation K59.04 Constipation type: chronic idiopathic constipation Abdominal bloating R14.0 Generalized abdominal pain R10.84 Abdominal location: generalized Time Spent (min) 40 Comment 30 minutes spent with patient and additional 10 minutes spent reviewing her records
== END 2023-08-31 16:16 | disposition home or self-care (01) ==
PROVIDERS: PCP Internal Medicine; Visit Provider Nurse Practitioner Family
DX: K59.04 Chronic idiopathic constipation (principal); R14.0 Abdominal distension (gaseous); R10.84 Generalized abdominal pain
CPT/HCPCS: 99203

== ENCOUNTER → 2023-08-31 15:29 | Outpatient (BNVA) | payer OTHER, SELFPAY | PROVIDERS: PCP Internal Medicine; Visit Provider Nurse Practitioner Family | DX: K59.04 Chronic idiopathic constipation (principal); R14.0 Abdominal distension (gaseous); R10.84 Generalized abdominal pain | CPT/HCPCS: 99202 ==

== ENCOUNTER 2023-09-01 09:30 | Outpatient (REF) | payer OTHER, SELFPAY ==
[2023-09-01 11:36] LABS: Alanine Aminotransferase 56 U/L (0-31); Albumin Level 4.2 g/dL (3.5-5.0); Alkaline Phosphatase 48 U/L (39-117); Aspartate Amino Transferase 32 U/L (5-31); Bilirubin Direct 0.2 mg/dL (0.0-0.5); Bilirubin Total 0.5 mg/dL (0.0-1.0); Total Protein 7.6 g/dL (6.5-8.0)
[2023-09-01 11:39] LABS: TSH reflex Free T4 2.09 uIU/mL (0.32-4.0)
== END 2023-09-01 09:31 | disposition home or self-care (01) ==
LOC: HO.LAB 09:30
PROVIDERS: PCP Internal Medicine; Visit Provider Nurse Practitioner Family
DX: R74.01 Elevation of levels of liver transaminase levels (principal); K59.00 Constipation, unspecified
CPT/HCPCS: 36415; 80076; 84443

== ENCOUNTER 2023-09-10 08:00 | Outpatient (REF) | payer OTHER, SELFPAY ==
--- NOTE | ~2023-09-10 | US_ITS ---
EXAMINATION: US ABDOMEN COMPLETE CLINICAL INFORMATION: Unspecified abdominal pain. COMPARISON: None available. TECHNIQUE: Real-time imaging of the abdominal viscera. FINDINGS: PANCREAS: The pancreas appears unremarkable, without masses or ductal dilatation, with the exception of the tail which is obscured by bowel gas. ABDOMINAL AORTA: The proximal, mid, and distal segments are normal in caliber. INFERIOR VENA CAVA: Visualized portions are normal. LIVER: The liver is normal in size. The liver contour is normal. There is diffuse increased liver parenchymal echogenicity, consistent with hepatic steatosis. No focal hepatic lesion. There is no intrahepatic biliary duct dilatation seen. GALLBLADDER: The gallbladder is physiologically distended without evidence of stones, sludge, polyps, wall thickening or pericholecystic fluid. COMMON BILE DUCT: Normal in caliber measuring 0.3 cm in diameter. RIGHT KIDNEY: No hydronephrosis. No renal calculi or focal parenchymal lesions. The kidney measures 10.1 cm in maximum dimension. LEFT KIDNEY: No hydronephrosis. No renal calculi or focal parenchymal lesions. The kidney measures 8.3 cm in maximum dimension. SPLEEN: Normal. The spleen measures 10.6 cm in maximum dimension. FREE FLUID: None. US/US abdomen complete IMPRESSION: Hepatic steatosis.
== END 2023-09-10 08:01 | disposition home or self-care (01) ==
LOC: HO.US 08:00
PROVIDERS: PCP Internal Medicine; Visit Provider Nurse Practitioner Family
DX: R10.9 Unspecified abdominal pain (principal)
CPT/HCPCS: 76700

== ENCOUNTER 2023-11-02 09:16 | Outpatient (AMB) | payer OTHER, SELFPAY ==
--- NOTE | 2023-11-02 09:17 | A.OFFVIS_ITS ---
Vital Signs 11/02/23 09:21 Height 5 ft Weight 171 lb 15.369 oz BMI 33.6 BP 131/71 Blood Pressure Location Lt brachial Position Sitting Pulse 92 Intake Visit Reasons: 2 month follow up Intake Note: Chacorta presents in the office as a 2 month follow up. CC: She is not having any GI concerns at this time. Portfolio Architect Required: No Allergies acetaminophen [From PERCOCET] Allergy (Intermediate, Verified 11/02/23 09:26) RASH morphine [MORPHINE] Allergy (Intermediate, Verified 11/02/23 09:26) RASH oxycodone [From PERCOCET] Allergy (Intermediate, Verified 11/02/23 09:26) RASH HPI HPI 2 month follow up: Details: LAST VISIT: Constipation Abdominal bloating Abdominal pain Plan Patient will start taking Dulcolax 2 tablets daily. Increase fluid intake and activity to promote better bowel motility. Will check her thyroid. Liver panel and ultrasound. Patient does admit to have pain in the right upper quadrant that radiates to her upper abdomen. Patient will follow-up in the office in 2 months. She will call our office if she will have worsening symptoms or develop any other GI concerning symptoms. She is agreeable to current plan of care and verbalizes understanding of instructions. She was given the opportunity to ask questions and all questions answered. ? Thank you for allowing me to participate in her care Orders Orders Liver Panel 09/01/23 R74.01 TSH reflex Free T4 09/01/23 K59.00 US abdomen complete 08/31/23 R10.9 Medications New bisacodyl (Dulcolax (bisacodyl)) 10 mg (2 x 5 mg) PO BEDTIME 180 tabs 4RF hydrocortisone 2.5% (Proctosol HC) 1 appl [place] BID-QID PRN 30 grams 2RF hemorrhoids K64.9 TODAY'S VISIT: Patient is here today for follow-up and to discuss lab results as well as ultrasound results. Patient reports that she has been feeling well. Reports that she is moving her bowels without any issues. Takes Dulcolax daily and it seems to help her. Patient had ultrasound that showed hepatic steatosis. No change in her liver enzymes since last October. Patient had normal liver enzymes in 2021. Patient does admit to gaining weight in the past year and a half or so. Patient denies any nausea or vomiting. Denies any family history of liver cirrhosis or any liver disease or cancer. [facility] Medical History (Updated 11/02/23 @ 19:19 by Suzanne Brower [facility]) Transaminitis Hepatic steatosis Family History Maternal Grandmother Breast CA Paternal Grandmother Breast CA Social History Alcohol intake: never Patient Tobacco Use Status: Never used Tobacco Sexual orientation: Straight/Heterosexual Gender identity: Female Female Reproductive History Menstrual Age of Menarche: 11 Review of Systems Const Denies weight gain and Denies weight loss ENT Reports no additional complaints, Denies dysphagia and Denies odynophagia Card Reports no additional complaints Resp Reports no additional complaints GI Denies abdominal pain, Denies belching, Denies melena, Denies bloating, Denies constipation, Denies dysphagia, Denies excessive flatus, Denies dyspepsia, Denies heartburn, Denies diarrhea, Denies loose stools, Denies nausea, Denies odynophagia and Denies vomiting Reports no additional complaints Musc Reports no additional complaints Neuro Reports no additional complaints Psych Reports no additional complaints Endo Reports no additional complaints Physical Exam Vital Signs: Last Vital Signs Pulse 92 11/02/23 09:21 BP 131/71 11/02/23 09:21 BMI result Body Mass Index 33.6 Const General: healthy appearing and no acute distress Nutritional Appearance: obese Orientation/consciousness: patient oriented x3 Resp Effort & Inspection: normal respiratory effort, able to speak in complete sentences, no tracheal deviation and symmetric chest movement Auscultation: clear to auscultation bilaterally Cardio Rate: regular rate GI Inspection: Yes normal to inspection and No distended Palpation (GI): Soft to palpation, not firm, nontender and No hepatosplenomegaly present Auscultation: normal bowel sounds General: Yes no CVA tenderness Back/Spine/Pelvis Back: no CVA tenderness Skin General skin exam: elasticity normal, turgor normal and dry skin Neuro General: patient oriented x3 Psych Appearance: grossly normal Mental Status: mental status grossly normal Results Reviewed Results Reviewed: Laboratory Tests 09/01/23 09:52 Total Bilirubin 0.5 Direct Bilirubin 0.2 AST 32 H ALT 56 H Alkaline Phosphatase 48 TSH 2.09 ABDOMINAL US FINDINGS: PANCREAS: The pancreas appears unremarkable, without masses or ductal dilatation, with the exception of the tail which is obscured by bowel gas. ABDOMINAL AORTA: The proximal, mid, and distal segments are normal in caliber. INFERIOR VENA CAVA: Visualized portions are normal. LIVER: The liver is normal in size. The liver contour is normal. There is diffuse increased liver parenchymal echogenicity, consistent with hepatic steatosis. No focal hepatic lesion. There is no intrahepatic biliary duct dilatation seen. GALLBLADDER: The gallbladder is physiologically distended without evidence of stones, sludge, polyps, wall thickening or pericholecystic fluid. COMMON BILE DUCT: Normal in caliber measuring 0.3 cm in diameter. RIGHT KIDNEY: No hydronephrosis. No renal calculi or focal parenchymal lesions. The kidney measures 10.1 cm in maximum dimension. LEFT KIDNEY: No hydronephrosis. No renal calculi or focal parenchymal lesions. The kidney measures 8.3 cm in maximum dimension. SPLEEN: Normal. The spleen measures 10.6 cm in maximum dimension. FREE FLUID: None. US/US abdomen complete IMPRESSION: Hepatic steatosis. Assessment & Plan Assessment & Plan (1) Constipation: Code(s): K59.00 - Constipation, unspecified Category: Medical Qualifiers: Constipation type: chronic idiopathic constipation Qualified Code(s): K59.04 - Chronic idiopathic constipation (2) Hepatic steatosis: Code(s): K76.0 - Fatty (change of) liver, not elsewhere classified Category: Medical (3) Transaminitis: Code(s): R74.01 - Elevation of levels of liver transaminase levels Category: Medical (4) Abdominal bloating: Code(s): R14.0 - Abdominal distension (gaseous) (5) Abdominal pain: Code(s): R10.9 - Unspecified abdominal pain Qualifiers: Abdominal location: epigastric Qualified Code(s): R10.13 - Epigastric pain Plan Patient will continue taking Dulcolax. Increase fluid intake and activity to promote better bowel motility. Transaminitis, ultrasound shows hepatic s teatosis. Will rule out autoimmune disorders. Encouraged patient to lose weight and start exercising. Avoid food high in fat more protein encouraged. Patient will follow-up in the office in 6 months, sooner on as needed basis. She is agreeable to this plan and verbalizes understanding of instructions. She was given the opportunity to ask questions and all questions answered. Thank you for allowing to participate in her care Orders: Orders Alpha Fetoprotein Today R79.89 - Other specified abnormal findings of blood chemistry Hepatitis A,B,C Profile Today R79.89 - Other specified abnormal findings of blood chemistry Smooth Muscle Antibody Today R79.89 - Other specified abnormal findings of blood chemistry Ceruloplasmin Today R79.89 - Other specified abnormal findings of blood chemistry Mitochondrial Antibody Today R79.89 - Other specified abnormal findings of blood chemistry C Reactive Protein Today K58.9 - Irritable bowel syndrome without diarrhea Ferritin Today R74.8 - Abnormal levels of other serum enzymes Medications: Refilled bisacodyl (Dulcolax (bisacodyl)) 10 mg (2 x 5 mg) PO BEDTIME 180 tabs 4RF Coding Level of Care Code Est Pt Level 4 (21479) Diagnoses Chronic idiopathic constipation K59.04 Constipation type: chronic idiopathic constipation Hepatic steatosis K76.0 Transaminitis R74.01 Abdominal bloating R14.0 Epigastric pain R10.13 Abdominal location: epigastric Time Spent (min) 35 Comment 20 minutes spent with patient and additional 15 minutes spent reviewing her records
[2023-11-02 09:21] VITALS: BP 131/71; PULSE 92; BMI 33.6
== END 2023-11-02 09:47 | disposition home or self-care (01) ==
PROVIDERS: PCP Internal Medicine; Visit Provider Nurse Practitioner Family
DX: K59.04 Chronic idiopathic constipation (principal); K76.0 Fatty (change of) liver, not elsewhere classified; R74.01 Elevation of levels of liver transaminase levels; R14.0 Abdominal distension (gaseous); R10.13 Epigastric pain
CPT/HCPCS: 99214

== ENCOUNTER → 2023-11-02 09:16 | Outpatient (BNVA) | payer OTHER, SELFPAY | PROVIDERS: PCP Internal Medicine; Visit Provider Nurse Practitioner Family | DX: K59.04 Chronic idiopathic constipation (principal); K76.0 Fatty (change of) liver, not elsewhere classified; R74.01 Elevation of levels of liver transaminase levels; R14.0 Abdominal distension (gaseous); R10.13 Epigastric pain | CPT/HCPCS: 99212 ==

== ENCOUNTER 2024-06-07 07:47 | Outpatient (AMB) | payer OTHER, SELFPAY ==
[2024-06-07 07:49] VITALS: BP 110/68; BMI 32.8
--- NOTE | 2024-06-07 07:49 | A.OFFVIS_ITS ---
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 No complaints. Last Pap/HPV was negative in 02/13 [facility] Medical History Transaminitis Hepatic steatosis Family History Maternal Grandmother Breast CA Paternal Grandmother Breast CA Father HTN (hypertension) Mother HTN (hypertension) Social History Household Members: None Housing: Apartment Alcohol intake: never Patient Tobacco Use Status: Never used Tobacco Current occupational status: employed Current occupation: [employer] Sexually active: No Sexual orientation: Straight/Heterosexual Gender identity: Female Female Reproductive History Menstrual Age of Menarche: 11 Date of last menstrual period: 04/21/24 Total pregnancies: 0 Date of last pap smear: 02/06/21 Review of Systems Const All systems reviewed & are unremarkable except as noted in HPI and below Card Reports as per HPI Resp Reports as per HPI GI Reports as per HPI and Reports no additional complaints Reports as per HPI Physical Exam Vital Signs: Last Vital Signs BP 110/68 06/07/24 07:49 BMI result Body Mass Index 32.8 Const General: cooperative, healthy appearing and comfortable Chest Chest palpation & inspection: normal inspection of the chest and normal palpation of entire chest wall Breast/axilla inspection: normal inspection of the breasts and normal inspection of the axillae Breast/axilla palpation: normal palpation of the breasts, normal palpation of the axillae and no axillary lymphadenopathy Resp Effort & Inspection: normal respiratory effort Auscultation: clear to auscultation bilaterally Percussion: percussion normal Cardio Palpation: normal PMI Rate: regular rate Rhythm: regular rhythm Heart sounds: no murmurs and no rubs Peripheral pulses: Peripheral pulses 2+ throughout GI Inspection: Yes normal to inspection Palpation (GI): Soft to palpation, nontender, no guarding, not rigid and No hepatosplenomegaly present Percussion: Yes normal to percussion Auscultation: normal bowel sounds Rectal Exam - Female: deferred General: Yes bladder normal to palpation External Female Exam: No lesion Speculum Exam - Vagina: normal appearance of the vagina, normal palpation, normal vaginal discharge and not erythematous Speculum Exam - Cervix: normal appearance of the cervix and normal palpation Bimanual exam- vagina & uterus: normal bimanual exam, normal palpation, uterine size normal, bladder normal to palpation, consistency normal and normal palpation Bimanual Exam- Adnexa, other: normal adnexae, no masses and no tenderness Assessment & Plan Assessment & Plan (1) Well woman exam: Code(s): Z01.419 - Encounter for gynecological examination (general) (routine) without abnormal findings Category: Medical Plan: Cotesting not indicated this year. Counseled the patient about the recommended dietary allowance of 1000 mg of Calcium & 600 IU of vitamin D. The patient was instructed to perform monthly self-breast exams and to schedule an annual exam in a year; All questions answered and the patient verbalized understanding. Instructed the patient to schedule annual exam in a year Coding Level of Care Code Est Pt Prev Care 18-39y(16439) Diagnoses Well woman exam Z01.419
--- OUTSIDE RECORDS SUMMARY | 2024-06-07 07:49 | XMS_ITS | Encounter Summary ---
Author Organization [facility] Address [address] [place] [id number] Phone Care Team Providers Care Tire Repairer Name Role Phone Daniela Sandoval MD Primary Care Provider Unava ilable Encounter Details Date Type Department Care Team (Late st Contact Info) Description 12/10/2016 Conversion Encounter [facility] - [address] [id number] Social History Tobacco Use Types Packs/Day Years Used Date Smoking Tobacco: Never Assessed Comments Unknown Sex and Gender Information Value Date Recorded Sex Assigned at Not on file Legal Sex Female 4:27 PM EDT Gender Identity Not on file Sexual Orientation Not on file documented as of this encounter Plan of Treatment Not on file documented as of this encounter Visit Diagnoses Not on filedocumented in this encounter Care Teams Tire Repairer Relationship Specialty Start Date End Date Daniela Sandoval MD PCP - General 12/04/16 documented as of this encounter
--- OUTSIDE RECORDS SUMMARY | 2024-06-07 07:49 | XMS_ITS | Clinical Summary ---
Author Organization [facility] Address [address] [place] [phone] Phone Care Team Providers Care Guest Service Representative Name Role Phone Daniela Sandoval MD Primary Care Provider Unava ilable Immunizations Immunization Administration Dates Next Due DTP 10/23/1993, 2,01/23/1990,11/23,1989 HPV, Quadrivalent 02/05/2009,12/05/2008 Hep B, ped/adol 11/04/2000,03/11/2000,11/05/1999 Hib (PRP-T) 10/23/1990 IPV 10/23/1993, 2,01/23/1990,11/23,1989 MMR 01/23/1995,08/23/1990 Meningococcal Conj (Menactra) MCV4P 04/14/2006 Td (adult) (MBL), 2 Lf tetan us toxoid, PF, adsorbed 11/04/2000 Tdap 12/05/2008 Varicella 12/05/2008,11/14/1998 Family History Relation Name Status Comments Brother Alive Brother: Asthma Father Alive Father: Alive a nd well Mother Alive Mother: Alive a nd well Sister Alive Sister: Asthma, Alive and well Social History Tobacco Use Types Packs/Day Years Used Date Smoking Tobacco: Never Assessed Comments Unknown Sex and Gender Information Value Date Recorded Sex Assigned at Not on file Legal Sex Female 4:27 PM EDT Gender Identity Not on file Sexual Orientation Not on file Plan of Treatment Health Maintenance Due Date Last Done Comments Consider Men B Vaccine (1 of 2 - Bexsero 2-dose series) 2005 HPV Vaccines (3 - 3-dose series) 06/07/2009 02/05/2009, 12/05/2008 DTaP,Tdap,and Td Vaccines (7 - Td or Tdap) 12/05/2018 12/05/2008, 11/04/2000, 10/23/1993, Additional history exists Influenza Vaccines (#1) 2023 COVID-19 Vaccine ( season) 2023 HIB Vaccines Completed 10/23/1990 IPV Vaccines Completed 10/23/1993, 04/28, 01/23/1990, Additional history exists MMR Vaccines Completed 01/23/1995, 08/23/1990 Hepatitis B Vaccines Completed 11/04/2000, 03/11/2000, 11/05/1999 Meningococcal Vaccine Completed 04/14/2006 Varicella Vaccines Completed 12/05/2008, 11/14/1998 Hepatitis A Vaccines Aged Out No long er eligible based on patient's age to complete this topic Men B Vaccine Aged Out No longer elig ible based on patient's age to complete this topic Pneumococcal Vaccine Aged Out No long er eligible based on patient's age to complete this topic Care Teams Guest Service Representative Relationship Specialty Start Date End Date Daniela Sandoval MD PCP - General 12/04/16
== END 2024-06-07 08:21 | disposition home or self-care (01) ==
LOC: HO.HWS 07:47
PROVIDERS: PCP Internal Medicine; Visit Provider Obstetrics & Gynecology
DX: Z01.419 Encounter for gynecological examination (general) (routine) without abnormal findings (principal)
CPT/HCPCS: 99395; 99459

== ENCOUNTER → 2024-06-07 07:47 | Outpatient (BNVA) | payer OTHER, SELFPAY | PROVIDERS: PCP Internal Medicine; Visit Provider Obstetrics & Gynecology | DX: Z01.419 Encounter for gynecological examination (general) (routine) without abnormal findings (principal) | CPT/HCPCS: 99395; 99459 ==

== ENCOUNTER 2024-06-24 03:22 | Emergency (ER) | payer OTHER, SELFPAY ==
--- NOTE | ~2024-06-24 | XR_ITS ---
CLINICAL HISTORY: sob 2 view chest x-ray Comparison: None Findings: No consolidation or effusion. Prominent cardiac silhouette. No acute fracture. IMPRESSION: 1. No acute findings. This document has been electronically signed by: Mo Kumar MD on 06/24/2024 04:25:22
[2024-06-24 03:32] VITALS: BP 141/86; PULSE 100; RESP 17; TEMP 36.8; O2SAT 98; BMI 32.3
[2024-06-24 04:34] LABS: Influenza A PCR NEGATIVE (Negative); Influenza B PCR POSITIVE (Negative); Resp Syncy Virus RNA Qual PCR NEGATIVE (Negative); SARS COV2 PCR INHOUSE NEGATIVE (Negative)
[2024-06-24 05:32] VITALS: BP 135/83; PULSE 98; RESP 20; TEMP 37.2; O2SAT 95
[2024-06-24 05:34] VITALS: O2SAT 96
--- NOTE | 2024-06-24 05:37 | PC.NURSE ---
Pt a&ox4, no signs of distress. Pt reports cough, congestion, sore throat, nausea/vomiting since weds. Plan of care ongoing.
--- NOTE | 2024-06-24 05:40 | ED.URI ---
HPI - URI/Sore Throat General Chief Complaint: Upper Respiratory Symptoms Stated Complaint: fever, nausea, SOB Time Seen by Provider: 06/24/24 05:32 Source: patient Mode of arrival: ambulatory Limitations: no limitations History of Present Illness ED Provider: HPI Narrative: Patient with URI symptoms for last 3 days with nausea vomiting sore throat body aches running nose not able to eat much no other family member sick Related Data Previous Rx's ?Medication ?Instructions ?Recorded bisacodyl 5 mg tablet,delayed 10 mg (2 x 5 mg) PO BEDTIME #180 11/02/23 release (Dulcolax (bisacodyl)) tabs codeine 10 mg-guaifenesin 100 mg/5 10 ml PO Q6H PRN cough #237 mL 06/24/24 mL oral liquid ibuprofen 600 mg tablet 600 mg PO Q6H PRN fever or pain 06/24/24 #30 tabs Allergies Allergy/AdvReac Type Severity Reaction Status Date / Time acetaminophen [From PERCOCET] Allergy Intermediate RASH Verified 06/24/24 03:34 morphine [MORPHINE] Allergy Intermediate RASH Verified 06/24/24 03:34 oxycodone [From PERCOCET] Allergy Intermediate RASH Verified 06/24/24 03:34 Review of Systems Review of Systems: Yes all other systems are reviewed and are negative PMFSH Past Medical History Medical History Transaminitis Hepatic steatosis Family History Family History Maternal Grandmother Breast CA Paternal Grandmother Breast CA Father HTN (hypertension) Mother HTN (hypertension) Social History Social History Household Members: None Housing: Apartment Alcohol intake: never Patient Tobacco Use Status: Never used Tobacco Smoked in Last 30 Days: No Use of substances other than those prescribed or required for medical reasons: No Advance Directives: No Advance Directives Information Provided: Yes Do you have a plan to hurt others: No Plan Current occupational status: employed Current occupation: [employer] Sexual orientation: Straight/Heterosexual Gender identity: Female Physical Exam Vital Signs: Vital Signs: Last Vital Signs Temp 99 F 06/24/24 07:23 Pulse 98 06/24/24 07:23 Resp 20 06/24/24 07:23 BP 135/83 06/24/24 07:23 Pulse Ox 96 06/24/24 07:23 O2 Del Method Room Air 06/24/24 05:34 BMI result Body Mass Index 32.3 Appearance: Alert. Oriented X3. No acute distress. Eyes: no pallor or icterus ENT: Pharynx normal. Oral Mucosa moist clear rhinorrhea Neck: Normal inspection. Neck supple. CVS: Normal heart rate and rhythm. Pulses normal. Respiratory: No respiratory distress. Equal air entry bilateral, no wheezing/rales/rhonchi Abd: soft, not tender Skin: Skin warm and dry. Normal skin color. Normal skin turgor. Extremities: No lower extremity edema, no calf tenderness Neuro: Oriented X 3. Medications Administered Discontinued Medications Generic Name Dose Route Start Last Admin Trade Name Freq PRN Reason Stop Dose Admin Guaifenesin/Codeine Phosphate 10 ml 06/24/24 05:59 06/24/24 06:39 Guaifen/Codeine Sf 200/20/10ml 10 Ml Liquid PO 06/24/24 06:00 10 ml ONCE ONE Administration Sodium Chloride 1,000 mls @ 999 mls/hr 06/24/24 06:17 06/24/24 06:40 Ns IV 06/24/24 07:17 999 mls/hr .Q1H1M ONE Administration Ketorolac Tromethamine 30 mg 06/24/24 06:17 06/24/24 06:39 Ketorolac Tromethamine 30 Mg/Ml Vial IVPUSH 06/24/24 06:18 30 mg ONCE ONE Administration Ondansetron HCl 4 mg 06/24/24 06:17 06/24/24 06:39 Ondansetron Hcl 4 Mg/2 Ml Vial IVPUSH 06/24/24 06:18 4 mg ONCE ONE Administration Medical Decision Making Lab Data MDM Lab Attestation statement: I reviewed the patient's lab results. Labs: Lab Results 06/24/24 Range/Units 03:53 Influenza Type A (PCR) NEGATIVE (Negative) Influenza Type B (PCR) POSITIVE A (Negative) RSV RNA Qual (PCR) NEGATIVE (Negative) SARS-CoV-2 RNA (RT-PCR) NEGATIVE (Negative) Discharge Plan Discharge Clinical Impression: Influenza Patient Disposition: Home, Self-Care Instructions: Influenza (ED) Additional Instructions: Drink plenty of fluid Cough syrup as prescribed Ibuprofen for pain Follow with PCP if not better Prescriptions: New codeine-guaifenesin 10-100 mg/5 mL liquid 10 ml PO Q6H PRN (Reason: cough) Qty: 237 0RF ibuprofen 600 mg tablet 600 mg PO Q6H PRN (Reason: fever or pain) Qty: 30 0RF No Action bisacodyl [Dulcolax (bisacodyl)] 5 mg tablet,delayed release (DR/EC) 10 mg PO BEDTIME Qty: 180 4RF Interventions: ED Discharge Assessment Last Done: 06/24/24 07:23 Discharge Date/Time: 06/24/24 07:23 Print Language: [place]an
[2024-06-24] MEDS: guaiFEN/Codeine SF 200/20/10ML 10 ML LIQUID PO (06:39)
[2024-06-24] MEDS: Ketorolac Tromethamine 30 MG/ML VIAL IVPUSH (06:39)
[2024-06-24] MEDS: ondansetron HCL 4 MG/2 ML VIAL IVPUSH (06:39)
[2024-06-24] MEDS: 0.9 % Sodium Chloride 1,000 ML 999 ML IV (06:40)
--- NOTE | 2024-06-24 06:45 | PC.NURSE ---
Pt medicated per [facility] Plan of care ongoing.
[2024-06-24 07:23] VITALS: BP 135/83; PULSE 98; RESP 20; TEMP 37.2; O2SAT 96
== END 2024-06-24 07:23 | disposition home or self-care (01) ==
PROVIDERS: Emergency Provider Internal Medicine; PCP Internal Medicine
DX: J10.1 Influenza due to other identified influenza virus with other respiratory manifestations (principal); R50.9 Fever, unspecified; J02.9 Acute pharyngitis, unspecified; Z03.818 Encounter for observation for suspected exposure to other biological agents ruled out
CPT/HCPCS: 0241U; 71046; 96374; 96375; 99284; 99285; J1885; J2405

== ENCOUNTER → 2024-06-24 03:40 | Outpatient (BNV) | payer OTHER, SELFPAY | PROVIDERS: PCP Internal Medicine; Visit Provider Radiology Diagnostic Radiology | DX: R06.02 Shortness of breath (principal) | CPT/HCPCS: 71046 ==

== ENCOUNTER 2024-09-08 08:54 | Outpatient (REF) | payer OTHER, SELFPAY ==
--- OUTSIDE RECORDS SUMMARY | 2024-09-08 09:08 | XMS_ITS | Clinical Summary ---
Author Organization [facility] Address [address] [place] [id number] Phone Care Team Providers Care Silk Opener Name Role Phone Daniela Sandoval MD Primary [...] Health Maintenance Due Date Last Done Comments HPV Vaccines (3 - 3-dose series) 06/07/2009 [...] age to complete this topic Care Teams Silk Opener Relationship Specialty Start Date End Date Daniela Sandoval MD PCP - General 12/04/16
--- OUTSIDE RECORDS SUMMARY | 2024-09-08 09:08 | XMS_ITS | Encounter Summary ---
Author Organization [facility] Address [address] [place] [phone] Phone Care Team Providers Care Mending Carrier Name Role Phone Daniela Sandoval MD Primary Care Provider Unava ilable Encounter Details Date Type Department Care Team (Late st Contact Info) Description 12/10/2016 Conversion Encounter [facility] - [address] [address] Social History Tobacco Use Types Packs/Day Years [...] on filedocumented in this encounter Care Teams Mending Carrier Relationship Specialty Start Date End Date Daniela Sandoval MD PCP - General 12/04/16 documented as of this encounter
[2024-09-08 09:11] LABS: MANUAL DIFF FLAG NO
[2024-09-08 09:42] LABS: Basophils Absolute Auto 0.1 X10*3/uL (0.0-0.2); Eosinophils Absolute Auto 0.5 X10*3/uL (0.0-0.4); Eosinophils Percent Auto 6.9 % (0-4); Hematocrit 39.5 % (37.0-47.0); Hemoglobin 13.4 g/dl (12.0-16.0); Imm Gran Abs Auto 0.02 X10*3/uL (0.00-0.03); Imm Gran Pct Auto 0.3 % (0.0-0.4); Lymphocytes Absolute Auto 2.1 X10*3/uL (1.2-4.9); Lymphocytes Percent Auto 30.9 % (20-40); Mean Corpuscular HGB Conc 33.9 g/dl (31.0-35.0); Mean Corpuscular Hemoglobin 29.3 pg (27.0-33.0); Mean Corpuscular Volume 86.2 fL (80.0-98.0); Mean Platelet Volume 11.4 fL (9.4-12.3); Monocytes Absolute Auto 0.3 X10*3/uL (0.1-1.2); Monocytes Percent Auto 4.8 % (2-11); Neutrophils Absolute Auto 3.9 x10*3/uL (2.0-8.3); Neutrophils Percent Auto 56.1 % (45-73); Platelet Count 247 X10*3/uL (160-400); Red Blood Count 4.58 X10*6/uL (4.20-5.50); White Blood Count 6.9 X10*3/uL (4.8-10.8)
[2024-09-08 10:27] LABS: Alanine Aminotransferase 19 U/L (0-31); Albumin Level 4.2 g/dL (3.5-5.0); Alkaline Phosphatase 44 U/L (39-117); Anion Gap 11 (12-20); Aspartate Amino Transferase 21 U/L (5-31); Blood Urea Nitrogen 11 mg/dL (9-16); Carbon Dioxide 23 mmol/L (22-29); Chloride 109 mmol/L (96-108); Estimated Glomerular Filt Rate > 60; Glucose Random 84 mg/dL (60-115); Potassium 3.9 mmol/L (3.3-5.1); Sodium 139 mmol/L (135-145); Total Protein 7.5 g/dL (6.5-8.0)
== END 2024-09-08 08:55 | disposition home or self-care (01) ==
LOC: HO.LAB 08:54
PROVIDERS: PCP Internal Medicine; Visit Provider Internal Medicine
DX: Z00.00 Encounter for general adult medical examination without abnormal findings (principal); E28.2 Polycystic ovarian syndrome; L73.2 Hidradenitis suppurativa; Z68.33 Body mass index [BMI] 33.0-33.9, adult
CPT/HCPCS: 36415; 80053; 84443; 85025

== ENCOUNTER 2025-04-25 13:37 | Outpatient (REF) | payer MEDICAID, SELFPAY ==
--- OUTSIDE RECORDS SUMMARY | 2025-04-24 14:00 | XMS_ITS | Encounter Summary ---
Author Organization [employer] Address [address] [place] [address] [address] [place] [address] Care Team Providers Care Space Buyer Name Role Phone Unavailable Primary Care Provider Unavailabl e Reason for Referral * Consultation (Routine) - Pending Review Specialty Diagnoses / Procedures Referred By Alexander joe Referred To Contact Sleep Medicine Diagnoses Snoring Cathi Cheema NP [address] [place] [address] Phone: tel: fax: Referral ID Status Reason Start Date Expiration Date Visits Requested Visits Authorized [id number] Pending Review Specialty Services Required 5 04/24/2026 1 1 Encounter Details Date Type Department Care Team ([facility] st Contact Info) Description 04/24/2025 2:00 PM EST Office Visit [facility] [address] [place] [address] Cathi Cheema NP [address] [place] [address] Hirsutism (Primary Dx); Dietary counseling; Exercise counseling; Other fatigue; Hot flashes; Irregular periods; Overweight; Acute intractable headache, unspecified headache type; Snoring Social History Tobacco Use Types Packs/Day Years Used Date Smoking Tobacco: Never Passive Smoke Exposure: Never Smokeless Tobacco: Never Alcohol Use Standard Drinks/Week Comments Never 0 (1 standard drink = 0.6 oz pur e alcohol) Depression Answer Date Recorded Patient Health Questionnaire-9 Score 1 04/24/2025 Patient Health Questionnaire-9 Score 1 04/24/2025 Last PHQ-9: Questionnaire Data Not on file 1 Housing Stability Answer Date Recorded What is your housing situation today? I have lo beltran 04/24/[address] you li ve. Do you have problems with any of the following? None of the above 04/24/2025 Food Insecurity Answer Date Recorded Within the past 12 months, y ou worried that your food would run out before you got money to buy more: Never True 04/24/2025 Within the past 12 months,th e food you bought just didn't last and you didn't have enough money to get more: Never True Transportation Answer Date Recorded In the past 12 months, has l ack of transportation kept you from medical appts, meetings, work or from getting things needed for daily living? No 04/24/2025 Utilities Answer Date Recorded In the past 12 months, has t he electric, gas, oil or water company threatened to shut off services in your home? No 04/24/2025 Depression Answer Date Recorded Patient Health Questionnaire-2 Score 0 04/24/2025 Internet Access Answer Date Recorded Internet Access Q1 Yes 04/24/2025 Internet Access Q2 Not on file 04/24/2025 Comments Unknown Sex and Gender Information Value Date Recorded Sex Assigned at Female 11/09/2024 7:56 AM EDT Legal Sex Female 1:37 PM EST Gender Identity Female 11/09/2024 7:56 AM EDT Sexual Orientation Straight 11/09/2024 7: 56 AM EDT documented as of this encounter Last Filed Vital Signs Vital Sign Reading Time Taken Comments Blood Pressure 138/98 04/24/2025 2:18 PM EST Pulse 96 04/24/2025 2:18 PM EST Temperature 36.9 C (98.5 F) 04/24/2025 2:18 PM EST Respiratory Rate 20 04/24/2025 2:18 PM EST Oxygen Saturation 98% 04/24/2025 2:18 PM EST Inhaled Oxygen Concentration - - Weight 83 kg (183 lb) 04/24/2025 2:18 PM EST Height 156.4 cm (5' 1.57 ) 04/24/2025 2:18 PM ES T Body Mass Index 33.94 04/24/2025 2:18 PM EST documented in this encounter Functional Status * SBIRT - Alcohol Question Answer Date of Assessment Author How many times in the past year have you had 5 or more (for men) or 4 or more (for women) drinks in a day? 1 04/24/2025 2:28 PM EST Ermelinda Brunner do, MA Score 1 04/24/2025 2:28 PM EST Ermelinda Mcgill MA * SBIRT - Drugs Question Answer Date of Assessment Author How many times in the past y ear have you used an illegal drug or used a prescription medication for non-medical reasons? 0 04/24/2025 2:28 PM EST Ermelinda Mcgill MA Score 0 04/24/2025 2:28 PM EST Ermelinda Mcgill MA * Over the past 2 weeks, how often have you been bothered by any of the following problems? Question Answer Date of Assessment Author Patient Health Questionnaire -2 Score 0 04/24/2025 2:28 PM EST Ermelinda Mcgill MA * Little interest or pleasure in doing things Answer Date of Assessment Author Not at all 04/24/2025 2:28 PM EST Ermelinda Sweeney MA * Feeling down, depressed, or hopeless Answer Date of Assessment Author Not at all 04/24/2025 2:28 PM EST Mk Ermelinda Browning MA * Trouble falling or staying asleep, or sleeping too much Answer Date of Assessment Author Not at all 04/24/2025 2:28 PM EST Mk Ermelinda Browning MA * Feeling tired or having little energy Answer Date of Assessment Author Several days 04/24/2025 2:28 PM EST Mk Ermelinda Browning MA * Poor appetite or overeating Answer Date of Assessment Author Not at all 04/24/2025 2:28 PM EST Ermelinda Sweeney MA * Feeling bad about yourself - or that you are a failure or have let yourself or your family down Answer Date of Assessment Author Not at all 04/24/2025 2:28 PM EST Ermelinda Sweeney MA * Trouble concentrating on things, such as reading the newspaper or watching television Answer Date of Assessment Author Not at all 04/24/2025 2:28 PM Ermelinda Kearns MA * Moving or speaking so slowly that other people could have noticed? Or the opposite - being so fidgety or restless that you have been moving around a lot more than usual. Answer Date of Assessment Author Not at all 04/24/2025 2:28 PM Ermelinda Kearns MA * Thoughts that you would be better off or hurting yourself in some way Answer Date of Assessment Author Not at all 04/24/2025 2:28 PM Ermelinda Kearns MA * Patient Health Questionnaire-9 Score Answer Date of Assessment Author 1 04/24/2025 2:28 PM Ermelinda Kearns MA * Over the last 2 weeks, how often have you been bothered by any of the following problems? Question Answer Date of Assessment Author Feeling nervous, anxious, or on edge 1 04/24/2025 2:27 PM Ermelinda Reyes MA Not being able to stop or control worrying 1 04/24/2025 2:27 PM Ermelinda Reyes MA Worrying too much about different things 1 04/24/2025 2:27 PM Ermelinda Reyes MA Trouble relaxing 0 04/24/2025 2:27 PM Ermelinda Torrez MA Being so restless that it is hard to sit still 0 04/24/2025 2:27 PM Ermelinda Reyes MA Becoming easily annoyed or irritable 0 04/24/2025 2:27 PM Ermelinda Reyes MA Feeling afraid as if somethi ng awful might happen 0 04/24/2025 2:27 PM Ermelinda Reyes MA JOVANY-7 Total Score 3 04/24/2025 2:27 PM Ermelinda Reyes MA * How difficult have these problems made it for you to do your work, take care of things at home, or get along with other people? Answer Date of Assessment Author Not difficult at all 04/24/2025 2:28 PM EST Ermelinda Martinez MA documented as of this encounter Progress Notes * Cathi Cheema NP - 04/24/2025 2:00 PM EST Yuliana Mackenzie, 35-year-old female - Diagnosed with PCOS at age 29 due to periods occurring every 3 months - Reports persistent irregular periods, currently waiting for period since January 2025 - Noted heavy facial and body hair growth, waxes regularly - History of control pill use for PCOS, discontinued due to significant weight gain - History of IUD placement, discontinued due to constant pain - Annual SAFETY PROFESSIONAL exams reported as normal - Reports feeling swollen and bloated, especially in lower abdomen - Reports weight gain - Reports fatigue and poor sleep - Reports hot flashes, feeling hot even in cold environments - Reports snoring and dry cough during sleep, noted by nephew - Reports frequent waking during sleep, does not feel rested - Reports headaches, twice since February 2025, described as severe, more around the eye, relieved by ibuprofen - Denies history of - Denies history of health issues growing up - Reports blood sugar checked 2 years ago, result normal - Reports mother had period problems and underwent surgery for endometriosis at age 50 Problem List[1] Medical History[2] Allergies[3] Review of Systems BP (!) 138/98 (BP Location: Left arm, Patient Position: Sitting, BP Cuff Size: Adult) Pulse 96 Temp 98.5 ??F (36.9 ??C) (Oral) Resp 20 Ht 5' 1.57 (1.564 m) Wt 183 lb (83 kg) LMP 02/18/2025 (Approximate) SpO2 98% BMI 33.94 kg/m?? Physical Exam Vitals reviewed. Constitutional: Appearance: She is obese. HENT: Head: Normocephalic and atraumatic. Nose: Nose normal. Eyes: Conjunctiva/sclera: Conjunctivae normal. Cardiovascular: Rate and Rhythm: Normal rate and regular rhythm. Pulmonary: Effort: Pulmonary effort is normal. Breath sounds: Normal breath sounds. Musculoskeletal: Cervical back: Normal range of motion and neck supple. Neurological: General: No focal deficit present. Mental Status: She is alert. - CARDIOVASCULAR: Blood pressure 138/98 mmHg, diastolic hypertension. Results: No visits with results within 28 Day(s) from this visit. Latest known visit with results is: No results found for any previous visit. Social history : Lives alone, [facility] No concerns , Sexually active with afab Assessment & Plan Dietary counseling Exercise counseling Hirsutism Other fatigue Orders: ??? CBC auto differential; Future ??? TSH W/Reflex to FT4; Future Hot flashes Orders: ??? FSH; Future ??? LH; Future ??? Estrogen, Total, Serum; Future Irregular periods Orders: ??? FSH; Future ??? LH; Future ??? Estrogen, Total, Serum; Future ??? TSH W/Reflex to FT4; Future ??? Hemoglobin A1c; Future ??? Comprehensive Metabolic Panel; Future Overweight Orders: ??? Hemoglobin A1c; Future Acute intractable headache, unspecified headache type Snoring Orders: ??? Referral to Sleep Medicine; Future Assessment & Plan Dietary counseling: - Recommended eating whole foods and minimizing processed foods to help manage symptoms associated with PCOS. Exercise counseling: - Recommended regular exercise to help manage PCOS symptoms and improve period regularity and pain. Hirsutism: - Hirsutism likely secondary to PCOS. - Discussed spironolactone as a possible treatment option. Advised considering control for hormonal management. Suggested consulting a medical facilities engineering manager or dermatology clinic regarding insurance coverage for laser hair removal or other management options. Other fatigue: - Fatigue may be multifactorial, including possible contribution from sleep apnea and hormonal imbalance. - Referred for polysomnography to evaluate for sleep apnea. Ordered blood tests including thyroid function, metabolic profile, and anemia screening. Hot flashes: - Hot flashes may be related to hormonal imbalance or early menopause. - Ordered hormone labs including FSH, LH, and estrogen to evaluate for early menopause. Recommendeddiscussing hot flashes with SAFETY PROFESSIONAL at next visit. Irregular periods: - Irregular periods consistent with PCOS. Noted academic risk for hormone- related cancers if periods are absent for extended intervals. - Advised tracking menstrual cycles. Discussed options for inducing or suppressing periods with contraceptives. Recommended contacting provider if periods do not occur. Ordered hormone labs for further evaluation. Overweight: - Weight gain may be associated with PCOS and hormonal imbalance. - Recommended regular exercise and dietary modifications. Ordered metabolic profile and thyroid function tests to assess for contributing factors. Acute intractable headache, unspecified headache type: - Headaches may be related to elevated blood pressure or other factors. - Advised use of ibuprofen or Excedrin for symptomatic relief. Recommended monitoring frequency of headaches and reporting if medication is needed more than once per week. Scheduled nurse blood pressure check for follow-up. Will consider antihypertensive therapy if blood pressure remains elevated. Snoring: - Snoring may be indicative of sleep apnea, which can contribute to fatigue and elevated blood pressure. - Referred for polysomnography to evaluate for sleep apnea. Appointments - Nurse blood pressure check - Referral for home polysomnography Current Medications[4] This note was drafted using Ambient (AI) technology. The patient/patient's guardian has been informed and has consented to the use of this technology: Yes [1] Patient Active Problem List Diagnosis ??? Severe dental caries ??? Pain, dental ??? Hirsutism ??? Other fatigue ??? Irregular periods ??? Hot flashes ??? Overweight ??? Acute intractable headache ??? Snoring [2] Past Medical History: Diagnosis Date ??? Known health problems: none [3] No Known Allergies [4] Current Outpatient Medications: ??? acetaminophen (Tylenol 8 Hour) 650 MG ER tablet, Take 1 tablet (650 mg) by mouth every 8 (eight) hours if needed for mild pain. Do not crush, chew, or split. (Patient not taking: Reported on 02/22/2025), Disp: 30 tablet, Rfl: 0 ??? acetaminophen (Tylenol 8 Hour) 650 MG ER tablet, Take 1 tablet (650 mg) by mouth every 8 (eight) hours if needed for mild pain. Do not crush, chew, or split. (Patient not taking: Reported on 02/22/2025), Disp: 30 tablet, Rfl: 0 ??? ibuprofen 400 MG tablet, Take 1.5 tablets (600 mg) by mouth every 6 (six) hours if needed for moderate pain. (Patient not taking: Reported on 02/22/2025), Disp: 15 tablet, Rfl: 0 ??? ibuprofen 600 MG tablet, Take 1 tablet (600 mg) by mouth 3 times daily. (Patient not taking: Reported on 02/22/2025), Disp: 30 tablet, Rfl: 0 documented in this encounter Miscellaneous Notes * Assessment & Plan Note - Cathi Cheema NP - 04/24/2025 2:00 PM ESTAssociated Problem(s): Hirsutism * Assessment & Plan Note - Cathi Cheema NP - 04/24/2025 2:00 PM ESTAssociated Problem(s): Other fatigue Orders: CBC auto differential; Future TSH W/Reflex to FT4; Future * Assessment & Plan Note - Cathi Cheema NP - 04/24/2025 2:00 PM ESTAssociated Problem(s): Hot flashes Orders: FSH; Future LH; Future Estrogen, Total, Serum; Future * Assessment & Plan Note - Cathi Cheema NP - 04/24/2025 2:00 PM ESTAssociated Problem(s): Irregular periods Orders: FSH; Future LH; Future Estrogen, Total, Serum; Future TSH W/Reflex to FT4; Future Hemoglobin A1c; Future Comprehensive Metabolic Panel; Future * Assessment & Plan Note - Cathi Cheema NP - 04/24/2025 2:00 PM ESTAssociated Problem(s): Overweight Orders: Hemoglobin A1c; Future * Assessment & Plan Note - Cathi Cheema NP - 04/24/2025 2:00 PM ESTAssociated Problem(s): Acute intractable headache * Assessment & Plan Note - Cathi Cheema NP - 04/24/2025 2:00 PM ESTAssociated Problem(s): Snoring Orders: Referral to Sleep Medicine; Future documented in this encounter Plan of Treatment Upcoming Encounters Date Type Department Care Team (Late st Contact Info) Description 05/10/2025 1:00 PM EST Clinical Support [address] [address] Scheduled Orders Name Type Priority Associated Diagnoses Orde r Schedule FSH Lab Routine Hot flashes Irregular periods Expected: 04/24/2025, Expires: 04/24/2026 LH Lab Routine Hot flashes Irregular periods Expected: 04/24/2025 (Approximate), Expires: 04/24/2026 Estrogen, Total, Serum Lab Routine Hot flashes Irregular periods Expected: 04/24/2025 (Approximate), Expires: 04/24/2026 CBC auto differential Lab Routine Other fatigue Expected: 04/24/2025 (Approximate), Expires: 04/24/2026 TSH W/Reflex to FT4 Lab Routine Other fatigue Irregular periods Expected: 04/24/2025 (Approximate), Expires: 04/24/2026 Hemoglobin A1c Lab Routine Irregular periods Overweight Expected: 04/24/2025 (Approximate), Expires: 04/24/2026 Comprehensive Metabolic Panel Lab Routine Irregular periods Expected: 04/24/2025 (Approximate), Expires: 04/24/2026 Scheduled Referrals Name Type Priority Associated Diagnoses Orde r Schedule Referral to Sleep Medicine Outpatient Referral Routine Snoring Expected: 04/24/2025 (Approximate), Expires: 04/24/2026 documented as of this encounter Visit Diagnoses Diagnosis Hirsutism- Primary Dietary counseling Dietary surveillance and counseling Exercise counseling Other fatigue Hot flashes Irregular periods Overweight Acute intractable headache, unspecified headache type Snoring Other dyspnea and respiratory abnormality documented in this encounter Additional Health Concerns Assessment Noted Time PHQ-9 Depression Total Score: 1 04/24/20 25 2:28 PM EST documented as of this encounter
--- OUTSIDE RECORDS SUMMARY | 2025-04-25 15:00 | XMS_ITS | Clinical Summary ---
Author Organization [employer] Address [address] [facility] [address] [place] [address] Care Team Providers Care Chairperson Anesthesiology Name Role Phone Unavailable Primary Care Provider Unavailabl e Allergies No known active allergies Medications ibuprofen 600 MG tablet Take 1 tablet (600 mg) by mouth 3 times daily. 30 tablet 5 Active Additional Information Patient not taking.Reported on 02/22/2025 acetaminophen (Tylenol 8 Hour) 650 MG ER tablet Take 1 tablet (650 mg) by mouth every 8 (eight) hours if needed for mild pain. Do not crush, chew, or split. 30 tablet 5 Active Additional Information Patient not taking.Reported on 02/22/2025 acetaminophen (Tylenol 8 Hour) 650 MG ER tablet Take 1 tablet (650 mg) by mouth every 8 (eight) hours if needed for mild pain. Do not crush, chew, or split. 30 tablet 5 Active Additional Information Patient not taking.Reported on 02/22/2025 ibuprofen 400 MG tablet Take 1.5 tablets (600 mg) by mouth every 6 (six) hours if needed for moderate pain. 15 tablet 5 Active Additional Information Patient not taking.Reported on 02/22/2025 Active Problems Problem Noted Date Diagnosed Date Hirsutism 04/24/2025 Assessment & Plan (04/24/2025 2:58 PM EST): Other fatigue 04/24/2025 Assessment & Plan (04/24/2025 2:58 PM EST): Orders: CBC auto differential; Future TSH W/Reflex to FT4; Future Irregular periods 04/24/2025 Assessment & Plan (04/24/2025 2:58 PM EST): Orders: FSH; Future LH; Future Estrogen, Total, Serum; Future TSH W/Reflex to FT4; Future Hemoglobin A1c; Future Comprehensive Metabolic Panel; Future Hot flashes 04/24/2025 Assessment & Plan (04/24/2025 2:58 PM EST): Orders: FSH; Future LH; Future Estrogen, Total, Serum; Future Overweight 04/24/2025 Assessment & Plan (04/24/2025 2:58 PM EST): Orders: Hemoglobin A1c; Future Acute intractable headache 04/24/2025 Assessment & Plan (04/24/2025 2:58 PM EST): Snoring 04/24/2025 Assessment & Plan (04/24/2025 2:58 PM EST): Orders: Referral to Sleep Medicine; Future Severe dental caries 11/09/2024 Pain, dental 11/09/2024 Encounters Date Type Department Care Team Description 04/24/2025 2:00 PM EST Office Visit [facility] [address] [place] [phone] Cathi Cheema NP Hirsutism (Primary Dx); Dietary counseling; Exercise counseling; Other fatigue; Hot flashes; Irregular periods; Overweight; Acute intractable headache, unspecified headache type; Snoring 04/24/2025 Travel 04/17/2025 Travel 04/12/2025 Patient Outreach [facility] [address] [place] [phone] Cathi Cheema NP Pre-visit Planning (Pre-visit planning - LVM ) 02/22/2025 8:00 AM EDT Office Visit [facility] [address] [place] [phone] Lavell Katz DDS 02/06/2025 1:20 PM EDT Immunization [facility] [address] [place] [phone] Encounter for immunization from Last 3 Months Immunizations Immunization Administration Dates Next Due Hep B, Adolescent or Pediatric 11/04/2000,1999,11/05/1999 MMR 01/23/1995,08/23/1990 TD (adult), 2 Lf tetanus tox oid, preservative free, adsorbed 11/04/2000 Tdap 02/06/2025,12/05/2008 Varicella 12/05/2008,11/14/1998 Social History Tobacco Use Types Packs/Day Years Used Date Smoking Tobacco: Never Passive Smoke Exposure: Never Smokeless Tobacco: Never Tobacco Cessation:Counseling Given: No Alcohol Use Standard Drinks/Week Comments Never 0 [...] Orientation Straight 11/09/2024 7: 56 AM EDT Last Filed Vital Signs Vital Sign Reading [...] Mass Index 33.94 04/24/2025 2:18 PM EST Plan of Treatment Upcoming Encounters Date Type Department Care Team (Late st Contact Info) Description 05/10/2025 1:00 PM EST Clinical Support [address] [address] Health Maintenance Due Date Last Done Comments Dental Oral Exam 1989 Dental Prophylaxis 1989 Dental X-Ray: Bitewings 1989 HIV Screening 1989 Family Planning (PISQ) 2004 Hepatitis C Screening 2007 HPV Vaccines (3 - 3-dose series) 06/07/2009 02/05/2009, 12/05/2008 Pap Smear 2010 Cervical Cancer Screening 2019 HPV/Cotest 2019 COVID-19 Vaccine ( season) 2024 12/08/2021, 11/17/2021 Influenza Vaccine (#1) 2024 Alcohol/Substance Use Screening 04/24/2026 04/24/2025 Depression Screening 04/24/2026 04/24/2025, 04/24/20 Disability Screening 04/24/2026 04/24/2025 SDOH Screening 04/24/2026 04/24/2025 Tobacco Screening 04/24/2026 04/24/2025 Dental X-Ray: Full Mouth 11/11/2027 11/09/2024 DTaP/Tdap/Td Vaccines (8 - Td or Tdap) 02/06/2035 02/06/2025, 12/05/2008, 11/04/2000, Additional history exists Zoster Vaccines (1 of 2) 2039 RSV Patients and Patients Aged 60 years or older (1 - 1-dose 75+ series) 2064 HIB Vaccines Completed 10/23/1990 IPV Vaccines Completed 10/23/1993, 04/28, 01/23/1990, Additional history exists Hepatitis B Vaccines Completed 11/04/2000, 03/11/2000, 11/05/1999 Meningococcal Vaccine Completed 04/14/2006 Hepatitis A Vaccines Aged Out No long er eligible based on patient's age to complete this topic Meningococcal B Vaccine Aged Out No l onger eligible based on patient's age to complete this topic Pneumococcal Vaccine: Pediatrics (0 to 5 Years) and At-Risk Patients (6 to 49) Years Aged Out No longer eligible based on patient's age to complete this topic RSV under 20 months Aged Out No longe r eligible based on patient's age to complete this topic Rotavirus Vaccines Aged Out No longer eligible based on patient's age to complete this topic Procedures Procedure Name Priority Date/Time Associated Diagnosis Comments NO CHARGE VISIT Routine 02/22/2025 8:00 AM EDT PANORAMIC RADIOGRAPHIC IMAGE Routine 11/09/2024 11:30 AM EDT from Last 3 Months or Most Recently Relevant to Health Maintenance Insurance [facility] C3 DENTAL - HSN PARTIAL (MEDICAID)
--- OUTSIDE RECORDS SUMMARY | 2025-04-25 15:00 | XMS_ITS | Encounter Summary ---
Author Organization [employer] Address [address] [facility] [address] [address] [place] [address] Care Team Providers Care Kennel Aide Name Role Phone Unavailable Primary Care Provider Unavailabl e Encounter Details Date Type Department Care Team (Latest Contact Info) Description 04/24/2025 Travel Social History Tobacco Use Types Packs/Day Years [...] is your housing situation today? I have lotonya beltran 04/24/[address] you [...] AM EDT documented as of this encounter Plan of Treatment Upcoming Encounters Date Type Department Care Team (Late st Contact Info) Description 05/10/2025 1:00 PM EST Clinical Support [address] [address] documented as of this encounter Visit Diagnoses Not on filedocumented in this encounter Additional Health Concerns Assessment Noted Time PHQ-9 Depression Total Score: 1 04/24/20 25 2:28 PM EST documented as of this encounter
--- OUTSIDE RECORDS SUMMARY | 2025-04-25 15:00 | XMS_ITS | Encounter Summary ---
Author Organization [facility] Address [address] [place] [phone] Phone Care Team Providers Care Metal Extrusion Supervisor Name Role Phone Daniela Sandoval MD Primary Care Provider Unava ilable Encounter Details Date Type Department Care Team (Late st Contact Info) Description 12/10/2016 Conversion Encounter [facility] - [address] [address] Social History Tobacco Use Types Packs/Day Years [...] on filedocumented in this encounter Care Teams Metal Extrusion Supervisor Relationship Specialty Start Date End Date Daniela Sandoval MD PCP - General 12/04/16 documented as of this encounter
--- OUTSIDE RECORDS SUMMARY | 2025-04-25 15:00 | XMS_ITS | Clinical Summary ---
Author Organization [facility] Address [address] [place] [phone] Phone Care Team Providers Care Weight Recorder Name Role Phone Daniela Sandoval MD Primary [...] 10/23/1993, Additional history exists Influenza Vaccines (#1) 2024 COVID-19 Vaccine ( season) 2024 HIB Vaccines Completed 10/23/1990 IPV Vaccines Completed [...] age to complete this topic Care Teams Weight Recorder Relationship Specialty Start Date End Date Daniela Sandoval MD PCP - General 12/04/16
[2025-04-25 16:22] LABS: MANUAL DIFF FLAG NO
[2025-04-25 16:40] LABS: Hematocrit 42.2 % (37.0-47.0); Hemoglobin 14.0 g/dl (12.0-16.0); Imm Gran Abs Auto 0.03 X10*3/uL (0.00-0.03); Imm Gran Pct Auto 0.4 % (0.0-0.4); Lymphocytes Absolute Auto 2.8 X10*3/uL (1.2-4.9); Mean Corpuscular HGB Conc 33.2 g/dl (31.0-35.0); Mean Corpuscular Hemoglobin 29.2 pg (27.0-33.0); Mean Corpuscular Volume 88.1 fL (80.0-98.0); NRBC Abs Auto 0.000 X10*3/uL (0.0-0.012); NRBC Pct Auto 0.0 /100WBC (0.0-0.2); Platelet Count 302 X10*3/uL (160-400); Red Blood Count 4.79 X10*6/uL (4.20-5.50); White Blood Count 8.5 X10*3/uL (4.8-10.8)
[2025-04-25 17:33] LABS: Alanine Aminotransferase 73 U/L (0-31); Albumin Level 4.8 g/dL (3.5-5.0); Alkaline Phosphatase 50 U/L (39-117); Anion Gap 12 (12-20); Aspartate Amino Transferase 49 U/L (5-31); Blood Urea Nitrogen 10 mg/dL (9-16); Calcium 9.7 mg/dL (8.4-10.2); Carbon Dioxide 25 mmol/L (22-29); Chloride 107 mmol/L (96-108); Estimated Glomerular Filt Rate > 60; Potassium 3.8 mmol/L (3.3-5.1); Sodium 140 mmol/L (135-145); Total Protein 8.2 g/dL (6.5-8.0)
[2025-04-26 06:38] LABS: Follicle Stimulating Hormone 5.0 mIU/mL
== END 2025-04-25 13:38 | disposition home or self-care (01) ==
LOC: HO.HHCL 13:37
PROVIDERS: PCP Nurse Practitioner Family; Visit Provider Nurse Practitioner Family
DX: E66.3 Overweight (principal); R23.2 Flushing; N92.6 Irregular menstruation, unspecified; R53.83 Other fatigue
CPT/HCPCS: 36415; 80053; 82672; 83001; 83002; 83036; 84443; 85025